=== PATIENT | female | born 1980 | race Caucasian/White ===

== ENCOUNTER 2016-12-20 08:08 | Emergency (ER) | payer OTHER ==
[~2016-12-20] VITALS: Ht 170.2 cm; Wt 116.0 kg
[~2016-12-20 08:08] MED LIST: ALBU18HF IH; ALPR0.5T PO; BECL8.7A INH; FLUO20CA38 PO; GABA600T PO; HYDR-3498 PO; IPRA4AER IH; LEVO88TA PO; ONDA4TAB35 PO; PANT40VI7 IV; PRAM28.33 PR; SUCR1TAB27 PO
[2016-12-20 08:10] VITALS: Ht 170.2 cm; Wt 116.0 kg
[2016-12-20] MEDS ORDERED: SOD CHLORIDE 0.9% 1,000 ML IV STA (08:24)
[2016-12-20] MEDS ORDERED: morphine 4 MG/ML VIAL IV STA ×2 (08:24→10:29)
[2016-12-20] MEDS ORDERED: DIPHENHYDRAMINE 50 MG INJ IV ONE ×2 (08:30→11:00)
[2016-12-20] MEDS ORDERED: LORA1TAB PO (08:54)
[2016-12-20] MEDS ORDERED: PANT40TA3 PO (08:55)
[2016-12-20] MEDS ORDERED: OMEP40CA6 PO (08:55)
[2016-12-20] MEDS ORDERED: GABA-526 PO ×4 (08:57→08:58)
[2016-12-20 09:00] LABS: ADD SCAN DIFF NO
[2016-12-20 09:15] LABS: BASOPHILS % 0.6 % (0.0-2.0); EOSINOPHILS # 0.3 10^3/ul (0.0-0.5); EOSINOPHILS % 3.5 % (0.0-7.0); HEMATOCRIT 41.6 % (37.0-47.0); HEMOGLOBIN 14.2 g/dl (12.0-16.0); LYMPHOCYTES # 2.7 10^3/ul (0.8-2.9); LYMPHOCYTES % 38.4 % (15.0-51.0); MEAN CORPUSCULAR HEMOGLOBIN 30.7 pg (29.0-33.0); MEAN CORPUSCULAR HGB CONC 34.1 g/dl (32.0-37.0); MEAN PLATELET VOLUME 9.2 fl (7.4-10.4); MONOCYTE # 0.6 10^3/ul (0.3-0.9); MONOCYTES % 7.8 % (0.0-11.0); NEUTROPHIL # 3.5 10^3/ul (1.6-7.5); NEUTROPHILS % 49.3 % (39.0-77.0); PLATELET COUNT 284 10^3/UL (140-415); RED BLOOD COUNT 4.62 10^6/ul (4.20-5.40); RED CELL DISTRIBUTION WIDTH 12.3 % (11.5-14.5); WHITE BLOOD COUNT 7.1 10^3/ul (4.8-10.8)
[2016-12-20 09:19] LABS: ALBUMIN 4.6 g/dl (3.3-4.9)
[2016-12-20 09:20] LABS: POTASSIUM 4.1 mmol/L (3.5-5.1)
[2016-12-20 09:22] LABS: ALBUMIN/GLOBULIN RATIO 1.04; BILIRUBIN,INDIRECT 0.3 mg/dl (0-1.1); BILIRUBIN,TOTAL 0.3 mg/dl (0.2-1.3); CREATININE 0.74 mg/dl (0.44-1.00)
[2016-12-20 09:23] LABS: CALCIUM 9.7 mg/dl (8.4-10.2)
--- NOTE | 2016-12-20 10:18 | RADRPT ---
PROCEDURE: CT Abdomen and Pelvis without contrast. CLINICAL INDICATION: Left flank pain. TECHNIQUE: CT scan of the abdomen and pelvis without contrast was performed on a multidetector hig h-resolution CT scanner. The patient was scanned without intravenous contrast. Coronal and sagittal reformatted images were obtained from the axial source images. Images were reviewed on a high-resol [employer] PACS workstation. The total exam CTDI equals 16.98 mGy and the total exam DLP equals 1100.79 m Gy-cm. One or the following dose reduction techniques were used: -Automated exposure control. -Adjustment of the mA and/or KV according to patient's size. -Use of iterative reconstruction technique. COMPARISON: CT abdomen and pelvis from 02/15/2016 FINDINGS: Lung Bases: Unremarkable. GI:. Unremarkable. Liver: Unremarkable. Gallbladder: Gallbladder is surgically absent. The common bile duct measures 10 mm. Pancreas: Unremarkable. Spleen: Unremarkablel Adrenals: Unremarkable. Kidneys: There is no evidence of nephrolithiasis, ureteral lithiasis or obstructive uropathy. Bladder: Unremarkable. Pelvic Organs: Unremarkable. Skeleton: Normal for age. Other: N/A IMPRESSION: 1. No evidence of nephrolithiasis, ureteral lithiasis or obstructive uropathy. 2. Previous cholecystectomy with mildly prominent common bile duct at 10 mm of uncertain significan ce. 3. Scattered colonic diverticulosis without evidence of acute diverticulitis. 4. No other significant intra-abdominal or pelvic process identified. RPTAT: [facility] Physician Roberto Date Time Electronically viewed and signed by Physician Roberto on 12/20/2016 10:18 WES/
[2016-12-20 10:48] VITALS: BP 137/80; PULSE 79; RESP 20; TEMP 99.3
[2016-12-20 10:55] LABS: ADD UMIC YES; URINE BILIRUBIN (Dip) NEGATIVE (NEGATIVE); URINE BLOOD (Dip) NEGATIVE (NEGATIVE); URINE COLOR LT. YELLOW (YELLOW); URINE GLUCOSE (Dip) NEGATIVE (NEGATIVE); URINE KETONES (Dip) NEGATIVE (NEGATIVE); URINE LEUKOCYTE ESTERASE (Dip) NEGATIVE (NEGATIVE); URINE NITRITE (Dip) POSITIVE (NEGATIVE); URINE TOTAL PROTEIN (Dip) NEGATIVE (NEGATIVE); URINE UROBILINOGEN (Dip) 0.2 E.U./dL (0.1-1.0)
[2016-12-20] MEDS ORDERED: CIPROFLOXACIN 500 MG TAB PO ONE (11:00)
[2016-12-20 11:02] LABS: BACTERIA,URINE MANY; URINE RBCS NONE SEEN /HPF (0)
--- NOTE | 2016-12-20 11:05 | ERD ---
ER Documentation Chief Complaint Date/Time DATE: 12/20/16 TIME: 11:01 Chief Complaint LT PELVIC PAIN TO FLANK X1 WK, SYNCOPE THIS AM W/ TRAUMA LT HEAD/SHOULDER HPI This is a 36-year-old female presents to the emergency room for evaluation of left-sided flank pain for the past week. The patient states that she was weak this morning and she did faint. She denies any head trauma, and states that she came to the ER for evaluation. She is denying any headache, blurred vision , dizziness, nausea or vomiting at this time. She describes her pain as an achy pain localized in the left flank with mild radiation to the groin sometimes worse with urination. Patient is denying any vaginal discharge or bleeding ROS All systems reviewed and are negative except as per history of present illness. Medications Home Meds Reported Medications Gabapentin* (Gabapentin*) 600 Mg Tablet, 600 MG PO QHS, #60 TAB 12/20/16 Gabapentin* (Gabapentin*) 600 Mg Tablet, 600 MG PO 6PM, #180 TAB 12/20/16 Gabapentin* (Gabapentin*) 600 Mg Tablet, 600 MG PO NOON, #90 TAB 12/20/16 Gabapentin* (Gabapentin*) 600 Mg Tablet, 1200 MG PO QAM, #60 TAB 12/20/16 Pantoprazole* (Protonix*) 40 Mg Tablet.dr, 40 MG PO BID, TAB 12/20/16 Omeprazole* (Omeprazole*) 40 Mg Capsule.dr, 40 MG PO BID, #30 CAP 12/20/16 Lorazepam* (Lorazepam*) 1 Mg Tablet, 1 MG PO Q4 Y for ANXIETY, #60 TAB 12/20/16 Fluoxetine Hcl* (Prozac*) 20 Mg Capsule, 20 MG PO BID, CAP 01/12/15 Levothyroxine Sodium* (Synthroid*) 88 Mcg Tablet, 88 MCG PO DAILY, TAB 08/16/14 Beclomethasone Dip* (Qvar 40*) 7.3 Gm Inha, 1 PUFF INH BID Y for SHORTNESS OF BREATH, INH 08/16/14 Discontinued Reported Medications Gabapentin* (Neurontin*) 600 Mg Tablet, 600 MG PO TID, TAB 08/16/14 Discontinued Scripts Pramoxine Hcl* (Anusol*) 28.3 Gm Oint...g., 1 APPLIC DC BID for HEMORROID PAIN/ ITCHING, #1 TUB Prov:ARIEL POE 02/26/16 Ondansetron Hcl* (Zofran* ODT) 4 mg -ODT Tab.disper, 4 MG PO Q4H Y for NAUSEA AND OR VOMITING, #30 TAB Prov:ARIEL POE 02/26/16 Hydrocodone Bit-Acetaminophen* ([place]*) 5-325 Mg Tab, 1 TAB PO Q4H Y for PAIN, # 30 TAB Prov:ARIEL POE 02/26/16 Pantoprazole* (Protonix* IV) 40 Mg Soln, 40 MG IV BID@06,18 for 30 Days Prov:ARIEL POE 02/26/16 Sucralfate (Carafate) 1 Gm Tab, 1 GM PO AC MEALS AND BEDTIME for 30 Days, TAB Prov:ARIEL POE 02/26/16 Alprazolam* (Xanax*) 0.5 Mg Tab, 0.5 MG PO Q8H Y for ANXIETY, #30 TAB Prov:QUEENIE HOLLINGSWORTH 01/16/15 Albuterol Sulfate* (Ventolin HFA*) 18 Gm Hfa.aer.ad, 2 PUFF IH Q4H Y for WHEEZING AND RESP DISTRESS, #30 EA Prov:QUEENIE HOLLINGSWORTH 01/16/15 Albuterol/Ipratropium* (Combivent Respimat*) 20-100 Mcg/Inh - 4 Gm Aer.w.adap, 1 PUFF IH QID, #30 INH Prov:QUEENIE HOLLINGSWORTH 01/16/15 Allergies Allergies: Coded Allergies: prochlorperazine edisylate (Verified Allergy, Severe, HIVES, 12/20/16) prochlorperazine maleate (Verified Allergy, Severe, HIVES, 12/20/16) ceftriaxone (Verified Allergy, Intermediate, RASHES, 12/20/16) doxycycline (Verified Allergy, Mild, itchiness, 12/20/16) metoclopramide (Verified Allergy, Mild, 12/20/16) naproxen (Verified Allergy, Unknown, ITCHING, 12/20/16) Uncoded Allergies: erythromycin (Adverse Reaction, Mild, c/o "scratchy throat, hives, itchy vagina, 02/18/16) erythromycin lactobionate PMhx/Soc History of Surgery: Yes (cholecystectomy, R oophorectomy, endometrisis, ovarian cya) Anesthesia Reaction: No Hx Neurological Disorder: No Hx Respiratory Disorders: Yes (asthma) Hx Cardiac Disorders: No Hx Psychiatric Problems: Yes (anxiety, Bipolar) Hx Miscellaneous Medical Probl: Yes (IBS, CROHNS) Hx Alcohol Use: No Hx Substance Use: No Hx Tobacco Use: No Smoking Status: Never smoker Physical Exam Vitals Vital Signs Date Time Temp Pulse Resp B/P Pulse Ox O2 Delivery O2 Flow Rate FiO2 12/20/16 08:10 99.3 114 20 146/88 97 Physical Exam INITIAL VITAL SIGNS: Reviewed by me GENERAL: The patient is well developed and appropriate for usual state of health in no apparent distress HEENT: Pupils equal, round, and reactive to light. EOMI. There is no scleral icterus. NECK: C-spine is soft and supple, there is no meningismus. There is no cervical lymphadenopathy. LUNGS: Clear to auscultation bilaterally. There are no rales, wheezes or rhonchi. HEART: Regular rate and rhythm, no murmurs, clicks, rubs or gallops. ABDOMEN: Left-sided CVAT, otherwise soft, non-tender, non-distended. There are bowel sounds in all four quadrants. No rebound or guarding. EXTREMITIES: There is no peripheral cyanosis or edema. No focal swelling or erythema. NEUROLOGICAL: The patient moves all four extremities with 5/5 strength. Cranial nerves II - XII are intact. Normal gait. Alert and oriented SKIN: There is no apparent rash or petechiae. HEME/LYMPHATIC: There is no evidence of excessive bruising or lymphedema. PSYCHIATRIC: The patient does not appear anxious or depressed. Result Diagram: 12/20/1682912/20/1630 Results 24 hrs Laboratory Tests Test 12/20/16 08:30 12/20/16 09:58 Alanine Aminotransferase (ALT/SGPT) 38IU/L Albumin 4.6g/dl Albumin/Globulin Ratio 1.04 Alkaline Phosphatase 73IU/L Anion Gap 21 Aspartate Amino Transf (AST/SGOT) 28IU/L Basophils # 0.010^3/ul Basophils % 0.6% Blood Urea Nitrogen 21mg/dl Calcium Level 9.7mg/dl Carbon Dioxide Level 23mmol/L Chloride Level 104mmol/L Creatinine 0.74mg/dl Direct Bilirubin 0.00mg/dl Eosinophils # 0.310^3/ul Eosinophils % 3.5% Globulin 4.40g/dl Glucose Level 93mg/dl Hematocrit 41.6% Hemoglobin 14.2g/dl Indirect Bilirubin 0.3mg/dl Lipase 60U/L Lymphocytes # 2.710^3/ul Lymphocytes % 38.4% Mean Corpuscular Hemoglobin 30.7pg Mean Corpuscular Hemoglobin Concent 34.1g/dl Mean Corpuscular Volume 90.0fl Mean Platelet Volume 9.2fl Monocytes # 0.610^3/ul Monocytes % 7.8% Neutrophils # 3.510^3/ul Neutrophils % 49.3% Nucleated Red Blood Cells # 0.010^3/ul Nucleated Red Blood Cells % 0.0/100WBC Platelet Count 32537^3/UL Potassium Level 4.1mmol/L Red Blood Count 4.6210^6/ul Red Cell Distribution Width 12.3% Sodium Level 144mmol/L Total Bilirubin 0.3mg/dl Total Protein 9.0g/dl White Blood Count 7.110^3/ul Urine Bilirubin NEGATIVE Urine Clarity CLEAR Urine Color LT. YELLOW Urine Glucose NEGATIVE% Urine Hemoglobin NEGATIVE Urine Ketones NEGATIVE Urine Leukocyte Esterase NEGATIVE Urine Microscopic RBC Pending Urine Microscopic WBC Pending Urine Nitrite POSITIVE Urine Specific [place] 1.020 Urine Total Protein NEGATIVE Urine Urobilinogen 0.2 E.U./dL Urine pH 6.5 Current Medications Medications (Trade) Dose Ordered Sig/Agnieszka Route PRN Reason Start Time Stop Time Status Last Admin Dose Admin Sodium Chloride (NS) 1,000 ml @ 1,000 mls/hr Q1H STAT IV 12/20/16 08:24 12/20/16 09:23 DC 12/20/16 08:42 Morphine Sulfate (morphine) 4 mg ONCE STAT IV 12/20/16 08:24 12/20/16 08:26 DC 12/20/16 08:42 Diphenhydramine HCl (Benadryl) 25 mg ONCE ONCE IV 12/20/16 08:30 12/20/16 08:31 DC 12/20/16 08:42 Morphine Sulfate (morphine) 4 mg ONCE STAT IV 12/20/16 10:29 12/20/16 10:30 DC 12/20/16 10:36 Diphenhydramine HCl (Benadryl) 25 mg ONCE ONCE IV 12/20/16 11:00 12/20/16 11:01 12/20/16 10:36 Ciprofloxacin (Cipro) 500 mg ONCE ONCE PO 12/20/16 11:00 12/20/16 11:01 Procedures/[facility] CT abdomen pelvis: 1. No evidence of nephrolithiasis, ureteral lithiasis or obstructive uropathy. 2. Previous cholecystectomy with mildly prominent common bile duct at 10 mm of uncertain significance. 3. Scattered colonic diverticulosis without evidence of acute diverticulitis. 4. No other significant intra-abdominal or pelvic process identified. This 36-year-old female presents to the emergency room for evaluation of left- sided flank pain and abdominal pain. She also stated that she did pass out this morning. When I evaluated her the patient had no complaints of a headache , she is alert and oriented to person place and time, no focal neurological deficits. Answering question appropriately. I do not feel the need for any imaging of the brain as this patient is at her baseline mental status with no visible trauma. This patient did have mild left-sided CVAT on my exam. CT of the abdomen pelvis was obtained which does not reveal any acute processes. Lab work and urine was also obtained this patient does have a nitrite positive urinary tract infection. This patient's pain is controlled with morphine in the emergency room, she was given p.o. ciprofloxacin. This patient also had mild prerenal azotemia was given 1 L of IV fluids. She is tolerating p.o. fluids. She will be discharged home at this time with a prescription for ciprofloxacin. Differential diagnoses entertained was broad with potential high acuity. Patient has been evaluated for appendicitis, cholecystitis, and other high risk medical and surgical causes of abdominal pain. Ultimately the patient's evaluation is nondiagnostic. Based on the patient's lack of risk factors, as well as the patient's clinical, laboratory, and imaging data, the patient appears to be low risk for these high risk causes of abdominal pain. Departure Diagnosis: Primary Impression: Acute cystitis Additional Impressions: Abdominal pain Prerenal azotemia Condition: Stable ЕКАТЕРИНАDAVID ONEILFRANSISCA CROWLEY Dec 20, 2016 11:05
[2016-12-20] MEDS ORDERED: HYDR-906 PO (11:06)
[2016-12-20] MEDS ORDERED: CIPR500T4 PO (11:06)
== END 2016-12-20 11:30 | disposition home or self-care (01) ==
LOC: E/R 08:08
DX: N30.00 Acute cystitis without hematuria (principal); R39.2 Extrarenal uremia; J45.909 Unspecified asthma, uncomplicated
CPT/HCPCS: 36415; 74176; 80053; 81001; 83690; 85025; 96374; 96375; 96376; J1200; J2270; J7030; Z7502; Z7610; 81003

== ENCOUNTER 2017-03-25 04:23 | Inpatient (IN) | payer OTHER ==
[~2017-03-25] VITALS: Ht 167.6 cm; Wt 122.2 kg
[~2017-03-25 04:23] MED LIST changes: -ALBU18HF IH; -ALPR0.5T PO; +CIPR500T4 PO; +GABA-526 PO; -GABA600T PO; -HYDR-3498 PO; +HYDR-906 PO; -IPRA4AER IH; +LORA1TAB PO; +OMEP40CA6 PO; -ONDA4TAB35 PO; +PANT40TA3 PO; -PANT40VI7 IV; -PRAM28.33 PR; -SUCR1TAB27 PO
[2017-03-25] MEDS ORDERED: morphine 4 MG/ML VIAL IV STA ×2 (04:45→08:27)
[2017-03-25] MEDS ORDERED: ONDANSETRON 4 MG INJ IV STA ×2 (04:45→08:27)
[2017-03-25] MEDS ORDERED: SOD CHLORIDE 0.9% 1,000 ML IV STA (04:45)
[2017-03-25] MEDS ORDERED: HYDROmorphONE 1 MG/ML SYG IV STA (05:02)
--- NOTE | 2017-03-25 05:07 | ERA ---
ER Documentation Chief Complaint Date/Time DATE: 03/25/17 TIME: 05:05 Chief Complaint LLQ abd pain, NV, diarrhea HPI This is a 37-year-old female comes in once of abdominal pain in the left lower quadrant with fever and diarrhea for the past 2-3 days. Patient has history of diverticulitis. Patient said pain is moderate in intensity. 4-5 episodes of diarrhea per day that were nonbloody. No other current complaints. ROS All systems reviewed and are negative except as per history of present illness. Medications Home Meds Active Scripts Hydrocodone/Acetaminophen ([place] 5-325 Tablet) 1 Each Tablet, 1 TAB PO Q6H Y for PAIN, #10 TAB Prov:TIMMY SAWANT DO 12/20/16 Ciprofloxacin Hcl* (Ciprofloxacin Hcl*) 500 Mg Tablet, 500 MG PO BID for 7 Days , TAB Prov:TIMMY SAWANT DO 12/20/16 Reported Medications Gabapentin* (Gabapentin*) 600 Mg Tablet, 600 MG PO QHS, #60 TAB 12/20/16 Gabapentin* (Gabapentin*) 600 Mg Tablet, 600 MG PO 6PM, #180 TAB 12/20/16 Gabapentin* (Gabapentin*) 600 Mg Tablet, 600 MG PO NOON, #90 TAB 12/20/16 Gabapentin* (Gabapentin*) 600 Mg Tablet, 1200 MG PO QAM, #60 TAB 12/20/16 Pantoprazole* (Protonix*) 40 Mg Tablet.dr, 40 MG PO BID, TAB 12/20/16 Omeprazole* (Omeprazole*) 40 Mg Capsule.dr, 40 MG PO BID, #30 CAP 12/20/16 Lorazepam* (Lorazepam*) 1 Mg Tablet, 1 MG PO Q4 Y for ANXIETY, #60 TAB 12/20/16 Fluoxetine Hcl* (Prozac*) 20 Mg Capsule, 20 MG PO BID, CAP 01/12/15 Levothyroxine Sodium* (Synthroid*) 88 Mcg Tablet, 88 MCG PO DAILY, TAB 08/16/14 Beclomethasone Dip* (Qvar 40*) 7.3 Gm Inha, 1 PUFF INH BID Y for SHORTNESS OF BREATH, INH 08/16/14 Allergies Allergies: Coded Allergies: prochlorperazine edisylate (Verified Allergy, Severe, HIVES, 12/20/16) prochlorperazine maleate (Verified Allergy, Severe, HIVES, 12/20/16) ceftriaxone (Verified Allergy, Intermediate, RASHES, 12/20/16) doxycycline (Verified Allergy, Mild, itchiness, 12/20/16) metoclopramide (Verified Allergy, Mild, 12/20/16) naproxen (Verified Allergy, Unknown, ITCHING, 12/20/16) Uncoded Allergies: erythromycin (Adverse Reaction, Mild, c/o "scratchy throat, hives, itchy vagina, 02/18/16) erythromycin lactobionate PMhx/Soc History of Surgery: Yes (cholecystectomy, R oophorectomy, endometrisis, ovarian cya) Anesthesia Reaction: No Hx Neurological Disorder: No Hx Respiratory Disorders: Yes (asthma) Hx Cardiac Disorders: No Hx Psychiatric Problems: Yes (anxiety, Bipolar) Hx Miscellaneous Medical Probl: Yes (IBS, CROHNS, Diverticulitis) Hx Alcohol Use: No Hx Substance Use: No Hx Tobacco Use: No Smoking Status: Never smoker Physical Exam Vitals Vital Signs Date Time Temp Pulse Resp B/P Pulse Ox O2 Delivery O2 Flow Rate FiO2 03/25/17 04:31 98.8 94 18 162/77 96 Physical Exam Const: [] Head: Atraumatic Eyes: Normal Conjunctiva ENT: Normal External Ears, Nose and Mouth. Neck: Full range of motion..~ No meningismus. Resp: Clear to auscultation bilaterally Cardio: Regular rate and rhythm, no murmurs Abd: Soft, non tender, non distended. Normal bowel sounds Skin: No petechiae or rashes Back: No midline or flank tenderness Ext: No cyanosis, or edema Neur: Awake and alert Psych: Normal Mood and Affect Results 24 hrs Current Medications Medications (Trade) Dose Ordered Sig/Agnieszka Route PRN Reason Start Time Stop Time Status Last Admin Dose Admin Sodium Chloride (NS) 1,000 ml @ 1,000 mls/hr Q1H STAT IV 03/25/17 04:45 03/25/17 05:44 Morphine Sulfate (morphine) 4 mg ONCE STAT IV 03/25/17 04:45 03/25/17 04:47 DC Ondansetron HCl (Zofran Inj) 4 mg ONCE STAT IV 03/25/17 04:45 03/25/17 04:47 DC Hydromorphone HCl (Dilaudid) 1 mg ONCE STAT IV 03/25/17 05:02 03/25/17 05:03 DC Diphenhydramine HCl (Benadryl) 50 mg ONCE ONCE IV 03/25/17 05:30 03/25/17 05:31 Procedures/MDM Medical decision-makin-year-old female with intractable abdominal pain. History of diverticulitis. Patient will be admitted to on-call physician for Dr. Riggins, who is admitted previously Departure Diagnosis: Primary Impression: Abdominal pain Qualified Code: R10.32 - Left lower quadrant pain Condition: Serious APRIL ROACH Mar 25, 2017 05:06
[2017-03-25] MEDS ORDERED: DIPHENHYDRAMINE 50 MG INJ IV ONE ×2 (05:30→08:30)
[2017-03-25 05:51] LABS: ADD SCAN DIFF NO
[2017-03-25 05:53] LABS: BASOPHILS % 0.7 % (0.0-2.0); EOSINOPHILS # 0.2 10^3/ul (0.0-0.5); EOSINOPHILS % 3.7 % (0.0-7.0); HEMATOCRIT 34.9 % (37.0-47.0); HEMOGLOBIN 12.1 g/dl (12.0-16.0); LYMPHOCYTES # 1.6 10^3/ul (0.8-2.9); LYMPHOCYTES % 35.6 % (15.0-51.0); MEAN CORPUSCULAR HEMOGLOBIN 31.8 pg (29.0-33.0); MEAN CORPUSCULAR HGB CONC 34.7 g/dl (32.0-37.0); MEAN CORPUSCULAR VOLUME 91.6 fl (82.0-101.0); MEAN PLATELET VOLUME 9.3 fl (7.4-10.4); MONOCYTE # 0.5 10^3/ul (0.3-0.9); MONOCYTES % 10.8 % (0.0-11.0); NEUTROPHIL # 2.2 10^3/ul (1.6-7.5); NEUTROPHILS % 48.8 % (39.0-77.0); PLATELET COUNT 247 10^3/UL (140-415); RED BLOOD COUNT 3.81 10^6/ul (4.20-5.40); RED CELL DISTRIBUTION WIDTH 12.3 % (11.5-14.5); WHITE BLOOD COUNT 4.6 10^3/ul (4.8-10.8)
[2017-03-25 05:54] LABS: ADD UMIC NO; URINE BILIRUBIN (Dip) NEGATIVE (NEGATIVE); URINE BLOOD (Dip) NEGATIVE (NEGATIVE); URINE COLOR LT. YELLOW (YELLOW); URINE GLUCOSE (Dip) NEGATIVE (NEGATIVE); URINE KETONES (Dip) NEGATIVE (NEGATIVE); URINE LEUKOCYTE ESTERASE (Dip) NEGATIVE (NEGATIVE); URINE NITRITE (Dip) NEGATIVE (NEGATIVE); URINE TOTAL PROTEIN (Dip) NEGATIVE (NEGATIVE); URINE UROBILINOGEN (Dip) 0.2 E.U./dL (0.1-1.0)
[2017-03-25 06:15] LABS: INR 0.9; PARTIAL THROMBOPLASTIN TIME 27.3 Sec (25.0-35.0); PROTIME 12.1 Sec (12.2-14.2); PT RATIO 0.9
[2017-03-25 06:21] LABS: ALBUMIN 4.8 g/dl (3.3-4.9); ALBUMIN/GLOBULIN RATIO 1.6; BILIRUBIN,INDIRECT 0.1 mg/dl (0-1.1); BILIRUBIN,TOTAL 0.1 mg/dl (0.2-1.3); CALCIUM 9.3 mg/dl (8.4-10.2); CREATININE 0.62 mg/dl (0.44-1.00); POTASSIUM 3.7 mmol/L (3.5-5.1); TOTAL PROTEIN 7.8 g/dl (6.1-8.1)
[2017-03-25] MEDS ORDERED: HYDROmorphONE 1 MG/ML SYG IV PRN (07:00)
[2017-03-25] MEDS: DEXTROSE 5%-0.45% NACL 1,000 ML IV SCH ×2 (09:01→22:20)
--- NOTE | 2017-03-25 10:07 | QN ---
Documentation Comment Observation Note: Time: 4 hours Family Hx: Negative for diabetes Evaluation: Multiple exams showed improving symptoms and no evidence of clinical decompensation. VONNIE VALLADARES MD Mar 25, 2017 10:07
[2017-03-25] MEDS: morphine 2 MG INJ IV PRN ×4 (11:38→22:06)
--- NOTE | 2017-03-25 13:15 | HP ---
DATE OF ADMISSION: 03/25/2017 CHIEF COMPLAINT: Left lower quadrant abdominal pain, nausea, vomiting, diarrhea. HISTORY OF PRESENT ILLNESS: The patient is a 37-year-old female with past medical history of irrita ble bowel syndrome, uterine fibroids, asthma, hypothyroidism, fibromyalgia, and anxiety. The patien t has a history of mild distal esophagitis and gastritis per EGD as done by ____ in February 2016. T he patient developed left lower quadrant pain, fever, and diarrhea for the past couple of days. The patient stated that she presented to another facility, where patient underwent ectopic ultrasound, which revealed uterine fibroids and complex cystic lesions of the left ovary. The patient also had a history of diverticulitis. The patient has a history of scattered colonic diverticula, per CT of abdomen and pelvis 3 months ago. The patient denies any shortness of breath, denies any chest pain. The patient complains of bilateral lower extremity edema and bilateral lower extremity pain. The patient was given IV fluids, Zofran and Dilaudid. The patient will be admitted for further evaluati on and management. PAST MEDICAL HISTORY: Per HPI. PAST SURGICAL HISTORY: Status post right oophorectomy, status post cholecystectomy. FAMILY HISTORY: Noncontributory. SOCIAL HISTORY: Patient denies any tobacco use, denies any alcohol use, denies any illicit drug use . ALLERGIES: THE PATIENT IS ALLERGIC TO: 1. CEFTRIAXONE. 2. DOXYCYCLINE. 3. ERYTHROMYCIN. 4. REGLAN. 5. NAPROXEN. 6. PROCHLORPERAZINE MALEATE. 7. METOCLOPRAMIDE. HOME MEDICATIONS: Include: 1. Gabapentin. 2. Protonix. 3. Omeprazole. 4. Ativan. 5. Prozac. 6. Synthroid. 7. Qvar. 8. [place]. 9. Ciprofloxacin. REVIEW OF SYSTEMS: A 12-point review of systems is negative unless mentioned in the HPI. PHYSICAL ASSESSMENT: GENERAL: Well-developed, obese female. Currently is awake, alert. VITAL SIGNS: Temperature 98.8, pulse is 94, blood pressure 162/77, respiratory rate 18, oxygen satu ration 96% on room air. HEENT: Head is atraumatic, normocephalic. Pupils equal, round, reactive to light and accommodation . Oral mucosa is pink and moist. NECK: Supple. No cervical lymphadenopathy, no thyromegaly. RESPIRATORY: Lungs clear bilaterally. There are no rhonchi, wheezes, rales noted. CARDIOVASCULAR: Normal S1, S2. No murmurs, gallops, or clicks, rubs noted. GASTROINTESTINAL: Abdomen is protuberant, soft, nondistended. Patient has left lower quadrant tend erness. Bowel sounds present. No rebound tenderness. EXTREMITIES: Mild edema 1+, pulses equal bilaterally 2+. SKIN: There is no rash, petechiae noted. NEUROLOGIC: Patient is awake, alert and oriented x4. No focal deficits noted. Motor strength 5/5 in all extremities. LABORATORY DATA: On admission, CBC: White blood cells 4.6, hemoglobin 12.1, hematocrit 34.9, plate lets 247. Chemistry: Sodium 140, potassium 3.7, chloride 104, carbon dioxide 25, anion gap 15, BUN 12, creatinine 0.62, glucose 119, calcium 9.3, AST 37, ALT 61, alkaline phosphatase is 59. Lipase is 44. Urinalysis was unremarkable. PT is 12.1, INR 0.9, aPTT is 27. ASSESSMENT AND PLAN: 1. Left lower quadrant abdominal pain. Can obtain repeat a CT of the abdomen and pelvis. Again, a sk . ____ to see patient in gastroenterology consultation. We will obtain stool for Clostridium d ifficile, ova and parasites due to diarrhea. Continue IV fluids and morphine p.r.n. for pain and Zo nakul p.r.n. for nausea. 2. Complex cystic lesion of the left ovary. We will call laborist director information security to evaluate the patient in gynecologic consultation. 3. Asthma, by history. Continue patient on breathing treatment. 4. Anxiety and bipolar disorder. Continue Prozac. 5. Hypothyroidism. We will check TSH. Continue Synthroid. 6. The patient with history of diverticulitis. We will continue patient on broad spectrum antibiot ic. 7. Will obtain ultrasound of bilateral lower extremities to rule out deep venous thrombosis. Further recommendations based on clinical course. Plan of care discussed with Dr. Messina. Dictated By: ARIEL POE CHIEF STRATEGY OFFICER for CRISTOFER MESSINA MD SR/NTS Conf#: [id number] DID#: [id number]
[2017-03-25] MEDS: PIPER-TAZO 3.375 GM IV (PMX) 100 ML IVPB SCH ×2 (13:21→22:06)
[2017-03-25] MEDS: DIPHENHYDRAMINE 50 MG INJ IV PRN ×2 (15:57→22:02)
[2017-03-25] MEDS: ONDANSETRON 4 MG INJ IV PRN ×2 (15:57→22:01)
[2017-03-25 18:03] VITALS: TEMP 98.8
[2017-03-25 19:35] VITALS: Ht 167.6 cm; Wt 122.2 kg
--- NOTE | 2017-03-25 20:03 | RADRPT ---
PROCEDURE: Ultrasound pelvis CLINICAL INDICATION: Abdominal Pain TECHNIQUE: Multiple canela scale and color Doppler images of the pelvis were obtained transabdominal ly and transvaginally. Images were reviewed PACS workstation COMPARISON: 02/18/2016 FINDINGS: The uterus is identified, measuring 8.3 x 4.5 x 6.6 cm. There are 2 uterine fibroids, measuring up t o 5.0 cm and 3.5 cm in size. The endometrial canal appears within normal limits, measuring 7 mm in thickness. The right ovary is not seen. The left ovary measures 4.1 x 2.2 x 2.3 centimeters. There are 2 left ovarian cysts, measuring up to 2.2 cm. The left ovary is unremarkable in echotexture, with maintain ed vascular flow. There is no evidence of free fluid. There is no abnormal adnexal mass. IMPRESSION: 1. Uterine fibroids, measuring 5.0 cm and 3.5 cm in size. 2. Two left ovarian cysts, measuring up to 2.2 cm. Status post right oophorectomy. 3. No adnexal mass or free fluid. RPTAT: DD .David Madrigal MD, Date Time Electronically viewed and signed by .David Madrigal MD, on 03/25/2017 20:02 .T/
[2017-03-25] MEDS ORDERED: OXYC-209 PO (20:15)
[2017-03-25 21:46] VITALS: BP 134/68; RESP 20
[2017-03-25] MEDS ORDERED: LORAZEPAM 1 MG TAB PO PRN (23:30)
[2017-03-26] MEDS: morphine 2 MG INJ IV PRN (01:30)
[2017-03-26] MEDS ORDERED: morphine 2 MG INJ IV ONE ×2 (02:30→22:00)
[2017-03-26] MEDS: DIPHENHYDRAMINE 50 MG INJ IV PRN ×5 (04:08→21:58)
[2017-03-26] MEDS: ONDANSETRON 4 MG INJ IV PRN ×5 (04:08→21:58)
[2017-03-26] MEDS: morphine 4 MG/ML VIAL IV PRN ×5 (04:09→20:27)
[2017-03-26] MEDS: DEXTROSE 5%-0.45% NACL 1,000 ML IV SCH ×2 (04:15→11:40)
[2017-03-26] MEDS: PIPER-TAZO 3.375 GM IV (PMX) 100 ML IVPB SCH ×3 (06:38→21:57)
[2017-03-26] MEDS: PANTOPRAZOLE (EC) 40 MG TAB PO SCH ×2 (06:38→17:49)
[2017-03-26 07:56] VITALS: BP 116/58; RESP 20
[2017-03-26] MEDS: FLUOXETINE 20 MG CAP PO SCH ×2 (08:05→20:28)
[2017-03-26] MEDS: LEVOTHYROXINE 88 MCG TAB PO SCH (08:05)
[2017-03-26] MEDS: GABAPENTIN 300 MG CAP PO SCH ×4 (08:05→22:01)
[2017-03-26] MEDS ORDERED: NON-FORMULARY/PATIENT OWN MED (Omeprazole* 40 MG) PO SCH (09:00)
[2017-03-26] MEDS: OXYCODONE/ACETAMINOPHEN (10/325) TAB PO PRN ×2 (09:31→17:51)
[2017-03-26] MEDS: MOMETASONE 0.24 GM INHALER INH SCH ×2 (09:33→20:28)
--- NOTE | 2017-03-26 19:18 | PN ---
Date/Time of Note Date/Time of Note DATE: 03/26/17 TIME: 19:13 Assessment/Plan VTE Prophylaxis VTE Prophylaxis Intervention: SCD's Lines/Catheters IV Catheter Type (from Nrsg): Peripheral IV Assessment/Plan Chief Complaint/Hosp Course ASSESSMENT AND PLAN: 1. Left lower quadrant abdominal pain. Dr. Barnes is asked to see patient in gastroenterology consultation. Follow-up stool for Clostridium difficile. Continue IV fluids and morphine p.r.n. for pain and Zofran p.r.n. for nausea. 2. Complex cystic lesion of the left ovary. Dr. Walters gynecology is following, pending pelvic ultrasound. 3. Asthma, by history. Continue patient on breathing treatment. 4. Anxiety and bipolar disorder. Continue Prozac. 5. Hypothyroidism. Continue Synthroid. 6. The patient with history of diverticulitis. Continue patient on broad spectrum antibiotic. Further recommendations based on clinical course. Plan of care discussed with Dr. Messina. Problems: Exam/Review of Systems Vital Signs Vitals Vital Signs Date Time Temp Pulse Resp B/P Pulse Ox O2 Delivery O2 Flow Rate FiO2 03/26/17 07:56 98.3 79 20 116/58 95 03/25/17 18:03 Room Air Intake and Output 03/25/17 03/25/17 03/26/17 15:00 23:00 07:00 Intake Total 2135 ml Balance 2135 ml Exam Constitutional: alert, oriented Neck: supple Cardiovascular: nl pulses Gastrointestinal: other (Left lower quadrant tenderness), soft Musculoskeletal: nl gait and stance Extremities: normal pulses Neurological: RANCH SUPERVISOR II-XII intact Results Result Diagram: 03/25/17 0500 03/25/17 0500 Medications Medications Current Medications Dextrose/Sodium Chloride 1,000 ml @ 75 mls/hr [id number] IV Last administered on 03/26/17 04:15; Admin Dose 75 MLS/HR; Start 03/25/17 at 09:00 Piperacillin Sod/ Tazobactam Sod (Zosyn 3.375gm/ 100 ml (Pmx)) 100 ml @ 200 mls /hr Q8 IVPB Last administered on 03/26/17 13:52; Admin Dose 200 MLS/HR; Start 03/25/17 at 14:00 Fluoxetine HCl (Prozac) 20 mg BID PO Last administered on 03/26/17 08:05; Admin Dose 20 MG; Start 03/26/17 at 09:00 Gabapentin (Neurontin) 1,200 mg QAM PO Last administered on 03/26/17 08:05; Admin Dose 1,200 MG; Start 03/26/17 at 09:00 Gabapentin (Neurontin) 600 mg DAILY@18 PO Last administered on 03/26/17 17:49; Admin Dose 600 MG; Start 03/26/17 at 18:00 Gabapentin (Neurontin) 600 mg DAILY@12 PO ; Start 03/26/17 at 12:00 Gabapentin (Neurontin) 600 mg QHS PO ; Start 03/26/17 at 21:00 Levothyroxine Sodium (Synthroid) 88 mcg DAILY PO Last administered on 03/26/17 08:05; Admin Dose 88 MCG; Start 03/26/17 at 09:00 Lorazepam (Ativan) 1 mg Q4 PRN PO ANXIETY; Start 03/25/17 at 23:30 Pantoprazole (Protonix Tab) 40 mg BID@,18 PO Last administered on 03/26/17 17 :49; Admin Dose 40 MG; Start 03/26/17 at 06:00 Mometasone Furoate (Asmanex) 1 puff BID INH Last administered on 03/26/17 09:33 ; Admin Dose 1 PUFF; Start 03/26/17 at 09:00 Oxycodone/ Acetaminophen (Endocet (10/ 325)) 2 tab Q6 PRN PO PAIN Last administered on 03/26/17 17:51; Admin Dose 2 TAB; Start 03/26/17 at 08:00 Diphenhydramine HCl (Benadryl) 25 mg Q4H PRN IV NAUSEA Last administered on 03/26 17:49; Admin Dose 25 MG; Start 03/26/17 at 09:30 Morphine Sulfate (morphine) 4 mg Q4H PRN IV PAIN Last administered on 03/26/17 16:13; Admin Dose 4 MG; Start 03/26/17 at 09:30 Ondansetron HCl (Zofran Inj) 4 mg Q4H PRN IV NAUSEA AND/OR VOMITING Last administered on 03/26/17 17:49; Admin Dose 4 MG; Start 03/26/17 at 10:00 ARIEL POE 7, 2017 19:18
[2017-03-26 21:29] VITALS: BP 131/66; RESP 20
[2017-03-26] MEDS ORDERED: LOPERAMIDE 2 MG CAP PO PRN (22:00)
[2017-03-27] MEDS: OXYCODONE/ACETAMINOPHEN (10/325) TAB PO PRN ×3 (00:06→23:34)
[2017-03-27] MEDS: DEXTROSE 5%-0.45% NACL 1,000 ML IV SCH ×3 (01:00→14:20)
[2017-03-27] MEDS: morphine 4 MG/ML VIAL IV PRN ×4 (01:01→13:53)
[2017-03-27] MEDS: ONDANSETRON 4 MG INJ IV PRN ×5 (02:27→20:14)
[2017-03-27] MEDS: DIPHENHYDRAMINE 50 MG INJ IV PRN ×5 (02:27→20:14)
[2017-03-27] MEDS ORDERED: morphine 4 MG/ML VIAL IV ONE (03:14)
[2017-03-27] MEDS: PIPER-TAZO 3.375 GM IV (PMX) 100 ML IVPB SCH ×3 (05:18→22:11)
[2017-03-27] MEDS: PANTOPRAZOLE (EC) 40 MG TAB PO SCH ×2 (05:18→17:50)
[2017-03-27 05:57] LABS: ADD SCAN DIFF NO
[2017-03-27 06:21] LABS: CALCIUM 8.6 mg/dl (8.4-10.2); CREATININE 0.63 mg/dl (0.44-1.00); POTASSIUM 3.9 mmol/L (3.5-5.1)
[2017-03-27 08:20] VITALS: BP 116/58; RESP 20
[2017-03-27] MEDS: LEVOTHYROXINE 88 MCG TAB PO SCH (08:49)
[2017-03-27] MEDS: GABAPENTIN 300 MG CAP PO SCH ×4 (08:50→20:16)
[2017-03-27] MEDS: FLUOXETINE 20 MG CAP PO SCH ×2 (08:50→20:16)
[2017-03-27] MEDS: MOMETASONE 0.24 GM INHALER INH SCH ×2 (08:59→20:16)
[2017-03-27 10:25] LABS: BASOPHILS % 0.9 % (0.0-2.0); EOSINOPHILS # 0.2 10^3/ul (0.0-0.5); EOSINOPHILS % 5.3 % (0.0-7.0); HEMATOCRIT 34.2 % (37.0-47.0); HEMOGLOBIN 11.8 g/dl (12.0-16.0); LYMPHOCYTES # 1.8 10^3/ul (0.8-2.9); LYMPHOCYTES % 42.1 % (15.0-51.0); MEAN CORPUSCULAR HEMOGLOBIN 31.9 pg (29.0-33.0); MEAN CORPUSCULAR HGB CONC 34.5 g/dl (32.0-37.0); MEAN CORPUSCULAR VOLUME 92.4 fl (82.0-101.0); MEAN PLATELET VOLUME 9.1 fl (7.4-10.4); MONOCYTE # 0.4 10^3/ul (0.3-0.9); MONOCYTES % 9.4 % (0.0-11.0); NEUTROPHIL # 1.8 10^3/ul (1.6-7.5); NEUTROPHILS % 41.8 % (39.0-77.0); PLATELET COUNT 237 10^3/UL (140-415); RED CELL DISTRIBUTION WIDTH 12.1 % (11.5-14.5); WHITE BLOOD COUNT 4.4 10^3/ul (4.8-10.8)
[2017-03-27] MEDS: morphine 10 MG INJ IV PRN ×2 (17:54→22:11)
[2017-03-27] MEDS ORDERED: PEG/ELECTROLYTES 4L BTL PO ONE (18:00)
--- NOTE | 2017-03-27 19:18 | PN ---
Date/Time of Note Date/Time of Note DATE: 03/27/17 TIME: 19:11 Assessment/Plan VTE Prophylaxis VTE Prophylaxis Intervention: SCD's Lines/Catheters IV Catheter Type (from Nrsg): Peripheral IV Assessment/Plan Assessment/Plan 1. Left lower quadrant abdominal pain. stool for Clostridium difficile negative. - per Dr. Barnes in gastroenterology consultation. 1. GI bleed- Angie - per GI - EGD/Colonoscopy tomorrow. - IV fluids - morphine p.r.n. for pain - Zofran p.r.n. for nausea. 2. Complex cystic lesion of the left ovary. - per Dr. Walters in gynecology - pelvic ultrasound showed Uterine fibroids, measuring 5.0 cm and 3.5 cm in size. Two left ovarian cysts, measuring up to 2.2 cm. Status post right oophorectomy.No adnexal mass or free fluid. 3. Asthma, by history. Continue patient on breathing treatment. 4. Anxiety and bipolar disorder. Continue Prozac. 5. Hypothyroidism. Continue Synthroid. 6. The patient with history of diverticulitis. Continue patient on broad spectrum antibiotic. Further recommendations based on clinical course. Plan of care discussed with Dr. Messina. Subjective 24 Hr Interval Summary Free Text/Dictation c/o Left lower quadrant abdominal pain. stool for Clostridium difficile negative. Dr. Barnes follows in gastroenterology consultation. Staff reported GI bleed- Angie, EGD/Colonoscopy tomorrow.per staff. Exam/Review of Systems Vital Signs Vitals Vital Signs Date Time Temp Pulse Resp B/P Pulse Ox O2 Delivery O2 Flow Rate FiO2 03/27/17 08:20 98.9 78 20 116/58 97 03/25/17 18:03 Room Air Intake and Output 03/26/17 03/26/17 03/27/17 15:00 23:00 07:00 Intake Total 100 ml 2790 ml 2290 ml Balance 100 ml 2790 ml 2290 ml Exam Constitutional: alert, oriented, well developed Respiratory: clear to auscultation, normal air movement Cardiovascular: nl pulses, regular rate and rhythm Gastrointestinal: soft Musculoskeletal: nl extremities to inspection Extremities: normal pulses Neurological: nl mental status, nl speech Results Result Diagram: 03/27/17 0450 03/27/17 0450 Results 24 hrs Laboratory Tests Test 03/27/17 04:50 White Blood Count 4.4 L Red Blood Count 3.70 L Hemoglobin 11.8 L Hematocrit 34.2 L Mean Corpuscular Volume 92.4 Mean Corpuscular Hemoglobin 31.9 Mean Corpuscular Hemoglobin Concent 34.5 Red Cell Distribution Width 12.1 Platelet Count 237 Mean Platelet Volume 9.1 Neutrophils % 41.8 Lymphocytes % 42.1 Monocytes % 9.4 Eosinophils % 5.3 Basophils % 0.9 Nucleated Red Blood Cells % 0.0 Neutrophils # 1.8 Lymphocytes # 1.8 Monocytes # 0.4 Eosinophils # 0.2 Basophils # 0.0 Nucleated Red Blood Cells # 0.0 Sodium Level 139 Potassium Level 3.9 Chloride Level 105 Carbon Dioxide Level 26 Anion Gap 12 Blood Urea Nitrogen 8 Creatinine 0.63 Glucose Level 84 Calcium Level 8.6 Medications Medications Current Medications Dextrose/Sodium Chloride 1,000 ml @ 75 mls/hr [id number] IV Last administered on 03/27/17 05:25; Admin Dose 75 MLS/HR; Start 03/25/17 at 09:00 Piperacillin Sod/ Tazobactam Sod (Zosyn 3.375gm/ 100 ml (Pmx)) 100 ml @ 200 mls /hr Q8 IVPB Last administered on 03/27/17 13:53; Admin Dose 200 MLS/HR; Start 03/25/17 at 14:00 Fluoxetine HCl (Prozac) 20 mg BID PO Last administered on 03/27/17 08:50; Admin Dose 20 MG; Start 03/26/17 at 09:00 Gabapentin (Neurontin) 1,200 mg QAM PO Last administered on 03/27/17 08:50; Admin Dose 1,200 MG; Start 03/26/17 at 09:00 Gabapentin (Neurontin) 600 mg DAILY@18 PO Last administered on 03/27/17 17:54; Admin Dose 600 MG; Start 03/26/17 at 18:00 Gabapentin (Neurontin) 600 mg DAILY@12 PO ; Start 03/26/17 at 12:00 Gabapentin (Neurontin) 600 mg QHS PO Last administered on 03/26/17 22:01; Admin Dose 600 MG; Start 03/26/17 at 21:00 Levothyroxine Sodium (Synthroid) 88 mcg DAILY PO Last administered on 03/27/17 08:49; Admin Dose 88 MCG; Start 03/26/17 at 09:00 Lorazepam (Ativan) 1 mg Q4 PRN PO ANXIETY; Start 03/25/17 at 23:30 Pantoprazole (Protonix Tab) 40 mg BID@,18 PO Last administered on 03/27/17 17 :50; Admin Dose 40 MG; Start 03/26/17 at 06:00 Mometasone Furoate (Asmanex) 1 puff BID INH Last administered on 03/27/17 08:59 ; Admin Dose 1 PUFF; Start 03/26/17 at 09:00 Oxycodone/ Acetaminophen (Endocet (10/ 325)) 2 tab Q6 PRN PO PAIN Last administered on 03/27/17 15:22; Admin Dose 2 TAB; Start 03/26/17 at 08:00 Diphenhydramine HCl (Benadryl) 25 mg Q4H PRN IV NAUSEA Last administered on 03/27 16:12; Admin Dose 25 MG; Start 03/26/17 at 09:30 Ondansetron HCl (Zofran Inj) 4 mg Q4H PRN IV NAUSEA AND/OR VOMITING Last administered on 03/27/17 16:12; Admin Dose 4 MG; Start 03/26/17 at 10:00 Loperamide HCl (Imodium Cap) 2 mg QID PRN PO DIARRHEA Last administered on 21:58; Admin Dose 2 MG; Start 03/26/17 at 22:00 Morphine Sulfate (morphine) 5 mg Q4H PRN IV PAIN Last administered on 03/27/17 17:54; Admin Dose 5 MG; Start 03/27/17 at 17:30 ISRAEL BOURGEOIS Mar 27, 2017 19:18
[2017-03-27] MEDS ORDERED: OXYCODONE/ACETAMINOPHEN (10/325) TAB PO ONE (20:20)
[2017-03-27 20:44] VITALS: BP 117/58; RESP 20
[2017-03-27 22:10] VITALS: BP 114/77; PULSE 108
[2017-03-28] VITALS (10 sets, daily range): BP systolic 121–141; BP diastolic 60–79; PULSE 80–97; RESP 16–28
[2017-03-28] MEDS: ONDANSETRON 4 MG INJ IV PRN ×5 (00:05→22:49)
[2017-03-28] MEDS: DIPHENHYDRAMINE 50 MG INJ IV PRN ×6 (00:05→22:49)
[2017-03-28] MEDS: DEXTROSE 5%-0.45% NACL 1,000 ML IV SCH ×2 (00:06→17:00)
[2017-03-28] MEDS: HYDROmorphONE 1 MG/ML SYG IV PRN ×3 (02:07→12:40)
[2017-03-28] MEDS: PANTOPRAZOLE (EC) 40 MG TAB PO SCH ×2 (06:00→16:58)
[2017-03-28] MEDS: PIPER-TAZO 3.375 GM IV (PMX) 100 ML IVPB SCH ×3 (06:28→21:13)
--- NOTE | 2017-03-28 07:29 | CONS ---
DATE OF ADMISSION: 03/25/2017 DATE OF CONSULTATION: TYPE OF CONSULTATION: Gastroenterology. Dear Dr. Messina: Thank you for asking me to see Mrs. Honeycutt in GI consultation. HISTORY OF PRESENT ILLNESS: The patient, as you know, is a 37-year-old white female who has been ex periencing bloody diarrhea for the past 3 days, having 2 to 3 bowel movements per day and the stool is liquid and mixed with blood. No nausea, no vomiting. No history of hematemesis. No history of prior gastrointestinal bleeding. No prior gastrointestinal problems. She takes multiple medications for different conditions, medications are as described below. REVIEW OF SYSTEM: Positive for migraine. PAST SURGICAL HISTORY: Includes hysterectomy, oophorectomy as well and cholecystectomy. MEDICATIONS PRIOR TO THE ADMISSION: Include: 1. Gabapentin. 2. Protonix. 3. Omeprazole. 4. Ativan. 5. Prozac. 6. Synthroid. 7. Qvar. 8. [place]. 9. Ciprofloxacin. SOCIAL HISTORY: The patient does not smoke or drink. She used to work in sales. FAMILY HISTORY: Father and grandfather had some colon cancer or colon polyps. PHYSICAL EXAMINATION: GENERAL: The patient is a 37-year-old white female who at this time she is alert, mildly obese. VITAL SIGNS: She is afebrile. CARDIOVASCULAR: Normal heart sounds. RESPIRATORY: Normal breath sounds. ABDOMEN: Showed unremarkable findings. LABORATORY WORKUP: Prothrombin time 12.1. WBC count is 4400, hemoglobin 11.8. INR is 0.9. IMAGING STUDIES: Pelvic ultrasound showing evidence of: 1. uterine fibroids. 2. Left ovarian cyst. CLINICAL IMPRESSION: Bloody diarrhea, rule out ischemic colitis, rule out infectious colitis. Doub t Clostridium difficile colitis. Doubt colorectal neoplasm, arteriovenous malformation, diverticulo sis. PLAN: Recommend colonoscopy. Recommend stool for ova and parasites and culture and C. difficile to amanuel. Once again, I would like to thank you for this consultation. Dictated By: ELY CAMPBELL/NTS Conf#: [id number] DID#: [id number] CC: CRISTOFER MESSINA MD;*EndCC*
[2017-03-28] MEDS: GABAPENTIN 300 MG CAP PO SCH ×4 (08:39→21:10)
[2017-03-28] MEDS: LEVOTHYROXINE 88 MCG TAB PO SCH (08:39)
[2017-03-28] MEDS: MOMETASONE 0.24 GM INHALER INH SCH ×4 (08:39→21:09)
[2017-03-28] MEDS: FLUOXETINE 20 MG CAP PO SCH ×2 (08:39→21:12)
[2017-03-28 10:08] LABS: ADD SCAN DIFF NO
[2017-03-28 10:15] LABS: BASOPHILS % 0.2 % (0.0-2.0); EOSINOPHILS # 0.3 10^3/ul (0.0-0.5); EOSINOPHILS % 5.3 % (0.0-7.0); HEMOGLOBIN 11.9 g/dl (12.0-16.0); LYMPHOCYTES # 1.9 10^3/ul (0.8-2.9); LYMPHOCYTES % 34.9 % (15.0-51.0); MEAN CORPUSCULAR HEMOGLOBIN 31.2 pg (29.0-33.0); MEAN CORPUSCULAR VOLUME 91.6 fl (82.0-101.0); MONOCYTE # 0.4 10^3/ul (0.3-0.9); MONOCYTES % 7.5 % (0.0-11.0); NEUTROPHIL # 2.7 10^3/ul (1.6-7.5); NEUTROPHILS % 51.7 % (39.0-77.0); PLATELET COUNT 245 10^3/UL (140-415); RED BLOOD COUNT 3.82 10^6/ul (4.20-5.40); RED CELL DISTRIBUTION WIDTH 12.3 % (11.5-14.5); WHITE BLOOD COUNT 5.3 10^3/ul (4.8-10.8)
[2017-03-28 10:49] LABS: CREATININE 0.66 mg/dl (0.44-1.00); POTASSIUM 3.6 mmol/L (3.5-5.1)
--- NOTE | 2017-03-28 12:15 | GILP ---
DATE OF PROCEDURE: PROCEDURE: Colonoscopy. PREOPERATIVE DIAGNOSIS: The patient presenting with history of bloody diarrhea, rule out inflammato ry bowel disease, colorectal neoplasm, diverticulosis. POSTOPERATIVE DIAGNOSIS: Mild degree of diverticulosis. The colon appeared normal. Minimal external hemorrhoids were noted. Biopsies were done to rule out microscopic colitis. DESCRIPTION OF PROCEDURE: After informed written consent was obtained, the patient was asked to lie on the left lateral side. Intravenous anesthesia was given which included 6 mg Versed and 100 mcg of fentanyl. When the patient became somnolent, the Olympus video colonoscope was introduced into t he rectum and scope was advanced all the way to the cecum. The entire colon showed normal mucosal p attern except for mild diverticulosis, no bleeding noted. Biopsies were done in a random fashion fr om the right side of the colon and also left side of the colon and no additional abnormalities detec shola. On the way out, minimal external hemorrhoids were noted and the procedure was terminated. PLAN: Recommend wait for the pathology report. Dictated By: ELY HERNÁNDEZ MD NC/NTS Conf#: [id number] DID#: [id number] CC: CRISTOFER DALEY MD; ELY HERNÁNDEZ MD;*EndCC*
[2017-03-28] MEDS ORDERED: MIDAZOLAM 1 MG/ML 2 ML INJ ONE ×3 (12:37)
[2017-03-28] MEDS ORDERED: FENTAnyl 50 MCG/ML VIAL ONE (12:37)
[2017-03-28] MEDS ORDERED: ONDANSETRON 4 MG INJ IV STA (12:50)
[2017-03-28] MEDS ORDERED: HYDROmorphONE 1 MG/ML SYG IV STA (13:57)
--- NOTE | 2017-03-28 15:17 | PN ---
Date/Time of Note Date/Time of Note DATE: 03/28/17 TIME: 15:10 Assessment/Plan VTE Prophylaxis VTE Prophylaxis Intervention: SCD's Lines/Catheters IV Catheter Type (from Nrsg): Peripheral IV Assessment/Plan Chief Complaint/Hosp Course Patient's complains of left lower quadrant pain, stated that Dilaudid makes her dizzy, DC Dilaudid, continue morphine as needed for pain. ASSESSMENT AND PLAN: 1. Left lower quadrant abdominal pain. Dr. Barnes is following in gastroenterology consultation. Stool for C. difficile is negative. Patient status post EGD and colonoscopy, continue to follow-up gastroenterology consult recommendations. Continue IV fluids and morphine p.r.n. for pain and Zofran p.r.n. for nausea. 2. Complex cystic lesion of the left ovary. Dr. Walters gynecology is following. 3. Asthma, by history. Continue patient on breathing treatment. 4. Anxiety and bipolar disorder. Continue Prozac. 5. Hypothyroidism. Continue Synthroid. 6. The patient with history of diverticulitis. Continue patient on broad spectrum antibiotic. Further recommendations based on clinical course. Plan of care discussed with Dr. Messina. Problems: Exam/Review of Systems Vital Signs Vitals Vital Signs Date Time Temp Pulse Resp B/P Pulse Ox O2 Delivery O2 Flow Rate FiO2 03/28/17 12:47 97.8 83 20 130/69 97 Room Air Intake and Output 03/27/17 03/27/17 03/28/17 15:00 23:00 07:00 Intake Total 100 ml 700 ml 5155 ml Balance 100 ml 700 ml 5155 ml Exam Constitutional: alert, oriented Head: normocephalic Neck: supple Cardiovascular: nl pulses Gastrointestinal: other (LLQ tenderness), soft Extremities: normal pulses Skin: nl turgor Results Result Diagram: 03/28/17 0918 03/28/17 0914 Results 24 hrs Laboratory Tests Test 03/28/17 09:14 03/28/17 09:18 Sodium Level 145 H Potassium Level 3.6 Chloride Level 107 Carbon Dioxide Level 26 Anion Gap 16 Blood Urea Nitrogen 7 Creatinine 0.66 Glucose Level 87 Calcium Level 9.0 White Blood Count 5.3 # Red Blood Count 3.82 L Hemoglobin 11.9 L Hematocrit 35.0 L Mean Corpuscular Volume 91.6 Mean Corpuscular Hemoglobin 31.2 Mean Corpuscular Hemoglobin Concent 34.0 Red Cell Distribution Width 12.3 Platelet Count 245 Mean Platelet Volume 9.0 Neutrophils % 51.7 Lymphocytes % 34.9 Monocytes % 7.5 Eosinophils % 5.3 Basophils % 0.2 Nucleated Red Blood Cells % 0.0 Neutrophils # 2.7 Lymphocytes # 1.9 Monocytes # 0.4 Eosinophils # 0.3 Basophils # 0.0 Nucleated Red Blood Cells # 0.0 Medications Medications Current Medications Dextrose/Sodium Chloride 1,000 ml @ 75 mls/hr [id number] IV Last administered on 03/28/17 00:06; Admin Dose 75 MLS/HR; Start 03/25/17 at 09:00 Piperacillin Sod/ Tazobactam Sod (Zosyn 3.375gm/ 100 ml (Pmx)) 100 ml @ 200 mls /hr Q8 IVPB Last administered on 03/28/17 14:21; Admin Dose 200 MLS/HR; Start 03/25/17 at 14:00 Fluoxetine HCl (Prozac) 20 mg BID PO Last administered on 03/27/17 20:16; Admin Dose 20 MG; Start 03/26/17 at 09:00 Gabapentin (Neurontin) 1,200 mg QAM PO Last administered on 03/27/17 08:50; Admin Dose 1,200 MG; Start 03/26/17 at 09:00 Gabapentin (Neurontin) 600 mg DAILY@18 PO Last administered on 03/27/17 17:54; Admin Dose 600 MG; Start 03/26/17 at 18:00 Gabapentin (Neurontin) 600 mg DAILY@12 PO ; Start 03/26/17 at 12:00 Gabapentin (Neurontin) 600 mg QHS PO Last administered on 03/27/17 20:16; Admin Dose 600 MG; Start 03/26/17 at 21:00 Levothyroxine Sodium (Synthroid) 88 mcg DAILY PO Last administered on 03/27/17 08:49; Admin Dose 88 MCG; Start 03/26/17 at 09:00 Lorazepam (Ativan) 1 mg Q4 PRN PO ANXIETY; Start 03/25/17 at 23:30 Pantoprazole (Protonix Tab) 40 mg BID@06,18 PO Last administered on 03/27/17 17 :50; Admin Dose 40 MG; Start 03/26/17 at 06:00 Mometasone Furoate (Asmanex) 1 puff BID INH Last administered on 03/28/17 10:27 ; Admin Dose 1 PUFF; Start 03/26/17 at 09:00 Oxycodone/ Acetaminophen (Endocet (10/ 325)) 2 tab Q6 PRN PO PAIN Last administered on 03/27/17 23:34; Admin Dose 2 TAB; Start 03/26/17 at 08:00 Diphenhydramine HCl (Benadryl) 25 mg Q4H PRN IV NAUSEA Last administered on 03/28 14:20; Admin Dose 25 MG; Start 03/26/17 at 09:30 Ondansetron HCl (Zofran Inj) 4 mg Q4H PRN IV NAUSEA AND/OR VOMITING Last administered on 03/28/17 10:20; Admin Dose 4 MG; Start 03/26/17 at 10:00 Loperamide HCl (Imodium Cap) 2 mg QID PRN PO DIARRHEA Last administered on 21:58; Admin Dose 2 MG; Start 03/26/17 at 22:00 Hydromorphone HCl (Dilaudid) 1 mg Q4H PRN IV PAIN Last administered on 12:40; Admin Dose 1 MG; Start 03/28/17 at 02:00 ARIEL POE Mar 28, 2017 15:17
[2017-03-28] MEDS: morphine 10 MG INJ IV PRN ×2 (16:53→21:12)
[2017-03-28] MEDS: OXYCODONE/ACETAMINOPHEN (10/325) TAB PO PRN (18:05)
[2017-03-28] MEDS ORDERED: ONDANSETRON 4 MG INJ IV ONE (21:00)
[2017-03-28] MEDS ORDERED: DIPHENHYDRAMINE 50 MG INJ IV ONE (21:00)
[2017-03-29] MEDS: OXYCODONE/ACETAMINOPHEN (10/325) TAB PO PRN ×4 (00:13→20:27)
[2017-03-29] MEDS: morphine 10 MG INJ IV PRN ×6 (01:25→23:28)
[2017-03-29] MEDS: DIPHENHYDRAMINE 50 MG INJ IV PRN ×6 (02:52→23:28)
[2017-03-29] MEDS: ONDANSETRON 4 MG INJ IV PRN ×6 (02:52→23:28)
[2017-03-29] MEDS: DEXTROSE 5%-0.45% NACL 1,000 ML IV SCH ×2 (02:57→23:27)
[2017-03-29] MEDS: PIPER-TAZO 3.375 GM IV (PMX) 100 ML IVPB SCH ×3 (05:28→23:27)
[2017-03-29] MEDS: PANTOPRAZOLE (EC) 40 MG TAB PO SCH ×2 (05:28→18:21)
[2017-03-29 06:11] LABS: ADD SCAN DIFF NO
[2017-03-29 06:26] LABS: BASOPHILS % 0.5 % (0.0-2.0); EOSINOPHILS # 0.3 10^3/ul (0.0-0.5); EOSINOPHILS % 6.4 % (0.0-7.0); HEMATOCRIT 31.8 % (37.0-47.0); HEMOGLOBIN 10.7 g/dl (12.0-16.0); LYMPHOCYTES # 1.8 10^3/ul (0.8-2.9); LYMPHOCYTES % 42.2 % (15.0-51.0); MEAN CORPUSCULAR HEMOGLOBIN 31.1 pg (29.0-33.0); MEAN CORPUSCULAR HGB CONC 33.6 g/dl (32.0-37.0); MEAN CORPUSCULAR VOLUME 92.4 fl (82.0-101.0); MEAN PLATELET VOLUME 8.9 fl (7.4-10.4); MONOCYTE # 0.3 10^3/ul (0.3-0.9); MONOCYTES % 8.1 % (0.0-11.0); NEUTROPHIL # 1.8 10^3/ul (1.6-7.5); NEUTROPHILS % 42.3 % (39.0-77.0); PLATELET COUNT 214 10^3/UL (140-415); RED BLOOD COUNT 3.44 10^6/ul (4.20-5.40); WHITE BLOOD COUNT 4.2 10^3/ul (4.8-10.8)
[2017-03-29 07:15] LABS: CALCIUM 8.7 mg/dl (8.4-10.2); CREATININE 0.69 mg/dl (0.44-1.00); POTASSIUM 3.3 mmol/L (3.5-5.1)
[2017-03-29 07:58] VITALS: BP 140/77; RESP 19
[2017-03-29] MEDS: MOMETASONE 0.24 GM INHALER INH SCH ×2 (09:42→20:28)
[2017-03-29] MEDS: GABAPENTIN 300 MG CAP PO SCH ×4 (09:42→20:27)
[2017-03-29] MEDS: FLUOXETINE 20 MG CAP PO SCH ×2 (09:42→20:27)
[2017-03-29] MEDS: LEVOTHYROXINE 88 MCG TAB PO SCH (09:42)
--- NOTE | 2017-03-29 12:54 | PN ---
Date/Time of Note Date/Time of Note DATE: 03/29/17 TIME: 12:53 Assessment/Plan VTE Prophylaxis VTE Prophylaxis Intervention: other Lines/Catheters IV Catheter Type (from Nrs): Peripheral IV Assessment/Plan Chief Complaint/Hosp Course 1. Left lower quadrant abdominal pain. Dr. Barnes is following in gastroenterology consultation. Stool for C. difficile is negative. Patient status post EGD and colonoscopy, continue to follow-up gastroenterology consult recommendations. Continue IV fluids and morphine p.r.n. for pain and Zofran p.r.n. for nausea. 2. Complex cystic lesion of the left ovary. Dr. Walters gynecology is following. 3. Asthma, by history. Continue patient on breathing treatment. 4. Anxiety and bipolar disorder. Continue Prozac. 5. Hypothyroidism. Continue Synthroid. 6. The patient with history of diverticulitis. Continue patient on broad spectrum antibiotic. Problems: Subjective 24 Hr Interval Summary Free Text/Dictation Patient has abdominal pain, worse with oral intake Exam/Review of Systems Vital Signs Vitals Vital Signs Date Time Temp Pulse Resp B/P Pulse Ox O2 Delivery O2 Flow Rate FiO2 03/29/17 07:58 98.4 76 19 140/77 96 03/28/17 12:47 Room Air Intake and Output 03/28/17 03/28/17 03/29/17 15:00 23:00 07:00 Intake Total 100 ml 1175 ml 2070 ml Balance 100 ml 1175 ml 2070 ml Exam Constitutional: well developed Head: atraumatic, normocephalic Neck: supple Respiratory: clear to auscultation Cardiovascular: regular rate and rhythm Gastrointestinal: soft, tender Extremities: normal pulses Results Result Diagram: 03/29/17 0551 03/29/17 0557 Results 24 hrs Laboratory Tests Test 03/29/17 05:51 03/29/17 05:57 White Blood Count 4.2 #L Red Blood Count 3.44 L Hemoglobin 10.7 L Hematocrit 31.8 L Mean Corpuscular Volume 92.4 Mean Corpuscular Hemoglobin 31.1 Mean Corpuscular Hemoglobin Concent 33.6 Red Cell Distribution Width 12.0 Platelet Count 214 Mean Platelet Volume 8.9 Neutrophils % 42.3 Lymphocytes % 42.2 Monocytes % 8.1 Eosinophils % 6.4 Basophils % 0.5 Nucleated Red Blood Cells % 0.0 Neutrophils # 1.8 Lymphocytes # 1.8 Monocytes # 0.3 Eosinophils # 0.3 Basophils # 0.0 Nucleated Red Blood Cells # 0.0 Sodium Level 145 H Potassium Level 3.3 L Chloride Level 109 Carbon Dioxide Level 26 Anion Gap 13 Blood Urea Nitrogen 8 Creatinine 0.69 Glucose Level 113 Calcium Level 8.7 Medications Medications Current Medications Dextrose/Sodium Chloride 1,000 ml @ 75 mls/hr [id number] IV Last administered on 03/29/17 02:57; Admin Dose 75 MLS/HR; Start 03/25/17 at 09:00 Piperacillin Sod/ Tazobactam Sod (Zosyn 3.375gm/ 100 ml (Pmx)) 100 ml @ 200 mls /hr Q8 IVPB Last administered on 03/29/17 05:28; Admin Dose 200 MLS/HR; Start 03/25/17 at 14:00 Fluoxetine HCl (Prozac) 20 mg BID PO Last administered on 03/29/17 09:42; Admin Dose 20 MG; Start 03/26/17 at 09:00 Gabapentin (Neurontin) 1,200 mg QAM PO Last administered on 03/29/17 09:42; Admin Dose 1,200 MG; Start 03/26/17 at 09:00 Gabapentin (Neurontin) 600 mg DAILY@18 PO Last administered on 03/28/17 16:58; Admin Dose 600 MG; Start 03/26/17 at 18:00 Gabapentin (Neurontin) 600 mg DAILY@12 PO Last administered on 03/29/17 12:22 ; Admin Dose 600 MG; Start 03/26/17 at 12:00 Gabapentin (Neurontin) 600 mg QHS PO Last administered on 03/28/17 21:10; Admin Dose 600 MG; Start 03/26/17 at 21:00 Levothyroxine Sodium (Synthroid) 88 mcg DAILY PO Last administered on 09:42; Admin Dose 88 MCG; Start 03/26/17 at 09:00 Lorazepam (Ativan) 1 mg Q4 PRN PO ANXIETY; Start 03/25/17 at 23:30 Pantoprazole (Protonix Tab) 40 mg BID@06,18 PO Last administered on 03/29/17 05:28; Admin Dose 40 MG; Start 03/26/17 at 06:00 Mometasone Furoate (Asmanex) 1 puff BID INH Last administered on 03/29/17 09: 42; Admin Dose 1 PUFF; Start 03/26/17 at 09:00 Oxycodone/ Acetaminophen (Endocet (10/ 325)) 2 tab Q6 PRN PO PAIN Last administered on 03/29/17 12:23; Admin Dose 2 TAB; Start 03/26/17 at 08:00 Diphenhydramine HCl (Benadryl) 25 mg Q4H PRN IV NAUSEA Last administered on 10:48; Admin Dose 25 MG; Start 03/26/17 at 09:30 Ondansetron HCl (Zofran Inj) 4 mg Q4H PRN IV NAUSEA AND/OR VOMITING Last administered on 03/29/17 10:48; Admin Dose 4 MG; Start 03/26/17 at 10:00 Loperamide HCl (Imodium Cap) 2 mg QID PRN PO DIARRHEA Last administered on 21:58; Admin Dose 2 MG; Start 03/26/17 at 22:00 Morphine Sulfate (morphine) 5 mg Q4H PRN IV PAIN LEVEL 6-10 Last administered on 03/29/17 09:43; Admin Dose 5 MG; Start 03/28/17 at 15:00 KARTIK CASTRO Mar 29, 2017 12:54
--- NOTE | 2017-03-29 16:58 | CONS ---
DATE OF ADMISSION: 03/25/2017 DATE OF CONSULTATION: CHIEF COMPLAINT: At this time, the patient is not having any rectal bleeding. She was admitted to the hospital with rectal bleeding. Colonoscopy showed diverticulosis and hemorrhoids. She currentl y does, however, complain of minimal abdominal pain. PHYSICAL EXAMINATION: No change from yesterday. LABORATORY WORKUP: WBC count 4200, hemoglobin 10.7. Chemistry: Potassium is 4.3. CLINICAL IMPRESSION: Rectal bleeding, stable, probably secondary to diverticulosis, may be hemorrho idal bleeding as well. PLAN: At this time, continue to monitor the patient closely. Dictated By: ELY CAMPBELL/VANCE Conf#: [id number] DID#: [id number] CC: ELY HERNÁNDEZ MD;*EndCC*
[2017-03-29 21:30] VITALS: BP 142/70; RESP 20
[2017-03-30] MEDS: OXYCODONE/ACETAMINOPHEN (10/325) TAB PO PRN ×3 (02:28→19:50)
[2017-03-30] MEDS: PROMETHAZINE 25 MG TAB PO PRN ×2 (03:57→08:08)
[2017-03-30] MEDS: DIPHENHYDRAMINE 50 MG INJ IV PRN ×5 (03:57→21:24)
[2017-03-30] MEDS: PIPER-TAZO 3.375 GM IV (PMX) 100 ML IVPB SCH ×3 (05:17→21:32)
[2017-03-30] MEDS: PANTOPRAZOLE (EC) 40 MG TAB PO SCH ×2 (05:17→17:23)
[2017-03-30] MEDS: morphine 10 MG INJ IV PRN ×5 (05:20→22:01)
[2017-03-30 07:54] VITALS: BP 142/76; RESP 20
[2017-03-30] MEDS: LEVOTHYROXINE 88 MCG TAB PO SCH (08:07)
[2017-03-30] MEDS: GABAPENTIN 300 MG CAP PO SCH ×4 (08:07→20:46)
[2017-03-30] MEDS: FLUOXETINE 20 MG CAP PO SCH ×2 (08:08→20:46)
[2017-03-30] MEDS: MOMETASONE 0.24 GM INHALER INH SCH ×2 (08:09→20:47)
[2017-03-30] MEDS: DEXTROSE 5%-0.45% NACL 1,000 ML IV SCH ×3 (09:00→22:20)
--- NOTE | 2017-03-30 12:03 | PN ---
Date/Time of Note Date/Time of Note DATE: 03/30/17 TIME: 12:02 Assessment/Plan VTE Prophylaxis VTE Prophylaxis Intervention: other Lines/Catheters IV Catheter Type (from Nrs): Peripheral IV Assessment/Plan Chief Complaint/Hosp Course 1. Left lower quadrant abdominal pain. Dr. Barnes is following in gastroenterology consultation. Stool for C. difficile is negative. Patient status post EGD and colonoscopy, continue to follow-up gastroenterology consult recommendations. Continue IV fluids and morphine p.r.n. for pain and Zofran p.r.n. for nausea. 2. Complex cystic lesion of the left ovary. Dr. Walters gynecology is following. 3. Asthma, by history. Continue patient on breathing treatment. 4. Anxiety and bipolar disorder. Continue Prozac. 5. Hypothyroidism. Continue Synthroid. 6. The patient with history of diverticulitis. Continue patient on broad spectrum antibiotic. Problems: Subjective 24 Hr Interval Summary Free Text/Dictation Patient continues to have abdominal pain, nausea and vomiting with oral intake Exam/Review of Systems Vital Signs Vitals Vital Signs Date Time Temp Pulse Resp B/P Pulse Ox O2 Delivery O2 Flow Rate FiO2 03/30/17 07:54 98.4 78 20 142/76 97 03/28/17 12:47 Room Air Intake and Output 03/29/17 03/29/17 03/30/17 15:00 23:00 07:00 Intake Total 1675 ml 1830 ml Balance 1675 ml 1830 ml Exam Constitutional: well developed Head: atraumatic, normocephalic Neck: supple Respiratory: clear to auscultation Cardiovascular: regular rate and rhythm Gastrointestinal: non-tender, soft Extremities: normal pulses Results Result Diagram: 03/29/17 0551 03/29/17 0557 Medications Medications Current Medications Dextrose/Sodium Chloride 1,000 ml @ 75 mls/hr [id number] IV Last administered on 03/29/17 23:27; Admin Dose 75 MLS/HR; Start 03/25/17 at 09:00 Piperacillin Sod/ Tazobactam Sod (Zosyn 3.375gm/ 100 ml (Pmx)) 100 ml @ 200 mls /hr Q8 IVPB Last administered on 03/30/17 05:17; Admin Dose 200 MLS/HR; Start 03/25/17 at 14:00 Fluoxetine HCl (Prozac) 20 mg BID PO Last administered on 03/30/17 08:08; Admin Dose 20 MG; Start 03/26/17 at 09:00 Gabapentin (Neurontin) 1,200 mg QAM PO Last administered on 03/30/17 08:07; Admin Dose 1,200 MG; Start 03/26/17 at 09:00 Gabapentin (Neurontin) 600 mg DAILY@18 PO Last administered on 03/29/17 18:21 ; Admin Dose 600 MG; Start 03/26/17 at 18:00 Gabapentin (Neurontin) 600 mg DAILY@12 PO Last administered on 03/29/17 12:22 ; Admin Dose 600 MG; Start 03/26/17 at 12:00 Gabapentin (Neurontin) 600 mg QHS PO Last administered on 03/29/17 20:27; Admin Dose 600 MG; Start 03/26/17 at 21:00 Levothyroxine Sodium (Synthroid) 88 mcg DAILY PO Last administered on 08:07; Admin Dose 88 MCG; Start 03/26/17 at 09:00 Lorazepam (Ativan) 1 mg Q4 PRN PO ANXIETY; Start 03/25/17 at 23:30 Pantoprazole (Protonix Tab) 40 mg BID@18 PO Last administered on 03/30/17 05:17; Admin Dose 40 MG; Start 03/26/17 at 06:00 Mometasone Furoate (Asmanex) 1 puff BID INH Last administered on 03/30/17 08: 09; Admin Dose 1 PUFF; Start 03/26/17 at 09:00 Oxycodone/ Acetaminophen (Endocet (10/ 325)) 2 tab Q6 PRN PO PAIN Last administered on 03/30/17 02:28; Admin Dose 2 TAB; Start 03/26/17 at 08:00 Diphenhydramine HCl (Benadryl) 25 mg Q4H PRN IV NAUSEA Last administered on 08:09; Admin Dose 25 MG; Start 03/26/17 at 09:30 Ondansetron HCl (Zofran Inj) 4 mg Q4H PRN IV NAUSEA AND/OR VOMITING Last administered on 03/29/17 23:28; Admin Dose 4 MG; Start 03/26/17 at 10:00 Loperamide HCl (Imodium Cap) 2 mg QID PRN PO DIARRHEA Last administered on 21:58; Admin Dose 2 MG; Start 03/26/17 at 22:00 Morphine Sulfate (morphine) 5 mg Q4H PRN IV PAIN LEVEL 6-10 Last administered on 03/30/17 09:43; Admin Dose 5 MG; Start 03/28/17 at 15:00 Promethazine HCl (Phenergan) 25 mg Q6H PRN PO nausea Last administered on 08:08; Admin Dose 25 MG; Start 03/30/17 at 01:30 KARTIK CASTRO Mar 30, 2017 12:03
[2017-03-30] MEDS: ONDANSETRON 4 MG INJ IV PRN ×3 (12:19→21:24)
--- NOTE | 2017-03-30 13:53 | CONS ---
Date/Time of Note Date/Time of Note DATE: 03/30/17 TIME: 13:50 Assessment/Plan Assessment/Plan Chief Complaint/Hosp Course cont current rx Problems: Consultation Date/Type/Reason Admit Date/Time Mar 25, 2017 at 05:05 Initial Consult Date 24 HR Interval Summary Free Text/Dictation admitted with gi bleeding no more3 gi bleeding Exam/Review of Systems Vital Signs Vitals Vital Signs Date Time Temp Pulse Resp B/P Pulse Ox O2 Delivery O2 Flow Rate FiO2 03/30/17 07:54 98.4 78 20 142/76 97 03/28/17 12:47 Room Air Intake and Output 03/29/17 03/29/17 03/30/17 15:00 23:00 07:00 Intake Total 1675 ml 1830 ml Balance 1675 ml 1830 ml Exam oe appears well abd neg colonoscopy showed diverticulosis and hemorrhoids hb stable Results Result Diagram: 03/29/17 0551 03/29/17 0557 Medications Medications Current Medications Dextrose/Sodium Chloride 1,000 ml @ 75 mls/hr [id number] IV Last administered on 03/29/17 23:27; Admin Dose 75 MLS/HR; Start 03/25/17 at 09:00 Piperacillin Sod/ Tazobactam Sod (Zosyn 3.375gm/ 100 ml (Pmx)) 100 ml @ 200 mls /hr Q8 IVPB Last administered on 03/30/17 05:17; Admin Dose 200 MLS/HR; Start 03/25/17 at 14:00 Fluoxetine HCl (Prozac) 20 mg BID PO Last administered on 03/30/17 08:08; Admin Dose 20 MG; Start 03/26/17 at 09:00 Gabapentin (Neurontin) 1,200 mg QAM PO Last administered on 03/30/17 08:07; Admin Dose 1,200 MG; Start 03/26/17 at 09:00 Gabapentin (Neurontin) 600 mg DAILY@18 PO Last administered on 03/29/17 18:21 ; Admin Dose 600 MG; Start 03/26/17 at 18:00 Gabapentin (Neurontin) 600 mg DAILY@12 PO Last administered on 03/30/17 12:40 ; Admin Dose 600 MG; Start 03/26/17 at 12:00 Gabapentin (Neurontin) 600 mg QHS PO Last administered on 03/29/17 20:27; Admin Dose 600 MG; Start 03/26/17 at 21:00 Levothyroxine Sodium (Synthroid) 88 mcg DAILY PO Last administered on 08:07; Admin Dose 88 MCG; Start 03/26/17 at 09:00 Lorazepam (Ativan) 1 mg Q4 PRN PO ANXIETY; Start 03/25/17 at 23:30 Pantoprazole (Protonix Tab) 40 mg BID@,18 PO Last administered on 03/30/17 05:17; Admin Dose 40 MG; Start 03/26/17 at 06:00 Mometasone Furoate (Asmanex) 1 puff BID INH Last administered on 03/30/17 08: 09; Admin Dose 1 PUFF; Start 03/26/17 at 09:00 Oxycodone/ Acetaminophen (Endocet (10/ 325)) 2 tab Q6 PRN PO PAIN Last administered on 03/30/17 12:41; Admin Dose 2 TAB; Start 03/26/17 at 08:00 Diphenhydramine HCl (Benadryl) 25 mg Q4H PRN IV NAUSEA Last administered on 12:19; Admin Dose 25 MG; Start 03/26/17 at 09:30 Ondansetron HCl (Zofran Inj) 4 mg Q4H PRN IV NAUSEA AND/OR VOMITING Last administered on 03/30/17 12:19; Admin Dose 4 MG; Start 03/26/17 at 10:00 Loperamide HCl (Imodium Cap) 2 mg QID PRN PO DIARRHEA Last administered on 21:58; Admin Dose 2 MG; Start 03/26/17 at 22:00 Morphine Sulfate (morphine) 5 mg Q4H PRN IV PAIN LEVEL 6-10 Last administered on 03/30/17 09:43; Admin Dose 5 MG; Start 03/28/17 at 15:00 Promethazine HCl (Phenergan) 25 mg Q6H PRN PO nausea Last administered on 08:08; Admin Dose 25 MG; Start 03/30/17 at 01:30 ELY HERNÁNDEZ MD Mar 30, 2017 13:53
[2017-03-30 20:59] VITALS: BP 156/62; RESP 20
[2017-03-31] MEDS ORDERED: morphine 2 MG INJ IV ONE (00:30)
[2017-03-31] MEDS: ONDANSETRON 4 MG INJ IV PRN ×6 (01:34→23:04)
[2017-03-31] MEDS: DIPHENHYDRAMINE 50 MG INJ IV PRN ×6 (01:35→23:04)
[2017-03-31] MEDS: morphine 10 MG INJ IV PRN ×6 (02:02→23:04)
[2017-03-31] MEDS: OXYCODONE/ACETAMINOPHEN (10/325) TAB PO PRN ×3 (04:12→22:13)
[2017-03-31] MEDS: PANTOPRAZOLE (EC) 40 MG TAB PO SCH ×2 (05:28→18:01)
[2017-03-31] MEDS: PIPER-TAZO 3.375 GM IV (PMX) 100 ML IVPB SCH ×3 (05:31→22:54)
[2017-03-31 07:40] VITALS: BP 139/97; RESP 16
[2017-03-31] MEDS: DEXTROSE 5%-0.45% NACL 1,000 ML IV SCH (08:38)
[2017-03-31] MEDS: LEVOTHYROXINE 88 MCG TAB PO SCH (08:39)
[2017-03-31] MEDS: FLUOXETINE 20 MG CAP PO SCH ×2 (08:39→20:41)
[2017-03-31] MEDS: GABAPENTIN 300 MG CAP PO SCH ×4 (08:40→20:41)
[2017-03-31] MEDS: MOMETASONE 0.24 GM INHALER INH SCH ×2 (08:40→20:41)
--- NOTE | 2017-03-31 17:38 | PN ---
Date/Time of Note Date/Time of Note DATE: 03/31/17 TIME: 17:32 Assessment/Plan VTE Prophylaxis VTE Prophylaxis Intervention: SCD's Lines/Catheters IV [facility] Saline Lock Assessment/Plan Chief Complaint/Hosp Course Patient's complains of diarrhea which is expected after the prep for colonoscopy , patient had emesis last night, complaints of generalized abdominal pain, remains hemodynamically stable. ASSESSMENT AND PLAN: 1. Left lower quadrant abdominal pain. Status post colonoscopy. Dr. Barnes is following in gastroenterology consultation. Stool for C. difficile is negative. Continue IV fluids and morphine p.r.n. for pain and Zofran p.r.n. for nausea. 2. Uterine fibroids in [address] Walters gynecology is following. 3. Asthma, by history. Continue patient on breathing treatment. 4. Anxiety and bipolar disorder. Continue Prozac. 5. Hypothyroidism. Continue Synthroid. 6. Diverticulosis. Further recommendations based on clinical course. Plan of care discussed with Dr. Messina. Problems: Exam/Review of Systems Vital Signs Vitals Vital Signs Date Time Temp Pulse Resp B/P Pulse Ox O2 Delivery O2 Flow Rate FiO2 03/31/17 07:40 98.5 81 16 139/97 96 03/28/17 12:47 Room Air Intake and Output 03/30/17 03/30/17 03/31/17 15:00 23:00 07:00 Intake Total 725 ml 2165 ml 1545 ml Balance 725 ml 2165 ml 1545 ml Exam Constitutional: alert, oriented Head: normocephalic Neck: supple Cardiovascular: nl pulses Gastrointestinal: soft, BS + Extremities: normal pulses Skin: nl turgor Results Result Diagram: 03/29/17 0551 03/29/17 0557 Medications Medications Current Medications Dextrose/Sodium Chloride 1,000 ml @ 75 mls/hr [id number] IV Last administered on 03/31/17 08:38; Admin Dose 75 MLS/HR; Start 03/25/17 at 09:00 Piperacillin Sod/ Tazobactam Sod (Zosyn 3.375gm/ 100 ml (Pmx)) 100 ml @ 200 mls /hr Q8 IVPB Last administered on 03/31/17 14:44; Admin Dose 200 MLS/HR; Start 03/25/17 at 14:00 Fluoxetine HCl (Prozac) 20 mg BID PO Last administered on 03/31/17 08:39; Admin Dose 20 MG; Start 03/26/17 at 09:00 Gabapentin (Neurontin) 1,200 mg QAM PO Last administered on 03/31/17 08:40; Admin Dose 1,200 MG; Start 03/26/17 at 09:00 Gabapentin (Neurontin) 600 mg DAILY@18 PO Last administered on 03/30/17 17:23 ; Admin Dose 600 MG; Start 03/26/17 at 18:00 Gabapentin (Neurontin) 600 mg DAILY@12 PO Last administered on 03/31/17 12:05 ; Admin Dose 600 MG; Start 03/26/17 at 12:00 Gabapentin (Neurontin) 600 mg QHS PO Last administered on 03/30/17 20:46; Admin Dose 600 MG; Start 03/26/17 at 21:00 Levothyroxine Sodium (Synthroid) 88 mcg DAILY PO Last administered on 08:39; Admin Dose 88 MCG; Start 03/26/17 at 09:00 Lorazepam (Ativan) 1 mg Q4 PRN PO ANXIETY; Start 03/25/17 at 23:30 Pantoprazole (Protonix Tab) 40 mg BID@18 PO Last administered on 03/31/17 05:28; Admin Dose 40 MG; Start 03/26/17 at 06:00 Mometasone Furoate (Asmanex) 1 puff BID INH Last administered on 03/31/17 08: 40; Admin Dose 1 PUFF; Start 03/26/17 at 09:00 Oxycodone/ Acetaminophen (Endocet (10/ 325)) 2 tab Q6 PRN PO PAIN Last administered on 03/31/17 12:06; Admin Dose 2 TAB; Start 03/26/17 at 08:00 Diphenhydramine HCl (Benadryl) 25 mg Q4H PRN IV NAUSEA Last administered on 14:45; Admin Dose 25 MG; Start 03/26/17 at 09:30 Ondansetron HCl (Zofran Inj) 4 mg Q4H PRN IV NAUSEA AND/OR VOMITING Last administered on 03/31/17 14:46; Admin Dose 4 MG; Start 03/26/17 at 10:00 Loperamide HCl (Imodium Cap) 2 mg QID PRN PO DIARRHEA Last administered on 21:58; Admin Dose 2 MG; Start 03/26/17 at 22:00 Morphine Sulfate (morphine) 5 mg Q4H PRN IV PAIN LEVEL 6-10 Last administered on 03/31/17 14:48; Admin Dose 5 MG; Start 03/28/17 at 15:00 Promethazine HCl (Phenergan) 25 mg Q6H PRN PO nausea Last administered on 08:08; Admin Dose 25 MG; Start 03/30/17 at 01:30 ARIEL POE Mar 31, 2017 17:38
[2017-03-31 21:24] VITALS: BP 155/78; RESP 18
[2017-04-01] MEDS: DEXTROSE 5%-0.45% NACL 1,000 ML IV SCH ×2 (02:59→14:20)
[2017-04-01] MEDS: morphine 10 MG INJ IV PRN ×4 (03:07→15:10)
[2017-04-01] MEDS: DIPHENHYDRAMINE 50 MG INJ IV PRN ×6 (03:08→23:04)
[2017-04-01] MEDS: ONDANSETRON 4 MG INJ IV PRN ×6 (03:08→23:04)
[2017-04-01] MEDS: OXYCODONE/ACETAMINOPHEN (10/325) TAB PO PRN ×3 (04:30→21:34)
[2017-04-01 05:19] LABS: ADD SCAN DIFF NO
[2017-04-01 05:22] LABS: BASOPHILS % 0.7 % (0.0-2.0); EOSINOPHILS # 0.3 10^3/ul (0.0-0.5); EOSINOPHILS % 4.9 % (0.0-7.0); HEMATOCRIT 32.8 % (37.0-47.0); HEMOGLOBIN 11.2 g/dl (12.0-16.0); LYMPHOCYTES # 1.9 10^3/ul (0.8-2.9); LYMPHOCYTES % 34.8 % (15.0-51.0); MEAN CORPUSCULAR HEMOGLOBIN 31.4 pg (29.0-33.0); MEAN CORPUSCULAR HGB CONC 34.1 g/dl (32.0-37.0); MEAN CORPUSCULAR VOLUME 91.9 fl (82.0-101.0); MEAN PLATELET VOLUME 9.1 fl (7.4-10.4); MONOCYTE # 0.4 10^3/ul (0.3-0.9); MONOCYTES % 6.5 % (0.0-11.0); NEUTROPHIL # 2.9 10^3/ul (1.6-7.5); NEUTROPHILS % 52.7 % (39.0-77.0); PLATELET COUNT 266 10^3/UL (140-415); RED BLOOD COUNT 3.57 10^6/ul (4.20-5.40); RED CELL DISTRIBUTION WIDTH 11.9 % (11.5-14.5); WHITE BLOOD COUNT 5.5 10^3/ul (4.8-10.8)
[2017-04-01 05:53] LABS: CALCIUM 9.3 mg/dl (8.4-10.2); CREATININE 0.63 mg/dl (0.44-1.00); POTASSIUM 3.8 mmol/L (3.5-5.1)
[2017-04-01] MEDS: PANTOPRAZOLE (EC) 40 MG TAB PO SCH ×2 (06:09→17:48)
[2017-04-01] MEDS: PIPER-TAZO 3.375 GM IV (PMX) 100 ML IVPB SCH ×2 (06:20→13:09)
[2017-04-01 07:40] VITALS: BP 132/76; RESP 18
[2017-04-01] MEDS: FLUOXETINE 20 MG CAP PO SCH ×2 (08:26→21:24)
[2017-04-01] MEDS: GABAPENTIN 300 MG CAP PO SCH ×4 (08:26→21:24)
[2017-04-01] MEDS: LEVOTHYROXINE 88 MCG TAB PO SCH (08:27)
[2017-04-01] MEDS: MOMETASONE 0.24 GM INHALER INH SCH ×2 (08:27→21:24)
[2017-04-01] MEDS ORDERED: PANT40TA3 PO (17:46)
[2017-04-01] MEDS ORDERED: OXYC-209 PO (17:46)
[2017-04-01] MEDS ORDERED: ONDA-43 PO (17:46)
--- NOTE | 2017-04-01 18:02 | PN ---
Date/Time of Note Date/Time of Note DATE: 04/01/17 TIME: 18:00 Assessment/Plan VTE Prophylaxis VTE Prophylaxis Intervention: SCD's Lines/Catheters [facility] Saline Lock Assessment/Plan Chief Complaint/Hosp Course Patient tolerates patient ate 50% of lunch and dinner no emesis, no diarrhea, d/ c home. ASSESSMENT AND PLAN: 1. Left lower quadrant abdominal pain. Status post colonoscopy. Dr. Barnes is following in gastroenterology consultation. Stool for C. difficile is negative. Continue IV fluids and morphine p.r.n. for pain and Zofran p.r.n. for nausea. 2. Uterine fibroids in [address] Walters gynecology is following. 3. Asthma, by history. Continue patient on breathing treatment. 4. Anxiety and bipolar disorder. Continue Prozac. 5. Hypothyroidism. Continue Synthroid. Further recommendations based on clinical course. Plan of care discussed with Dr. Messina. Problems: Exam/Review of Systems Vital Signs Vitals Vital Signs Date Time Temp Pulse Resp B/P Pulse Ox O2 Delivery O2 Flow Rate FiO2 04/01/17 07:40 98.0 91 18 132/76 96 03/28/17 12:47 Room Air Intake and Output 03/31/17 03/31/17 04/01/17 15:00 23:00 07:00 Intake Total 1025 ml 1500 ml Balance 1025 ml 1500 ml Exam Constitutional: alert, oriented Head: normocephalic Neck: supple Cardiovascular: nl pulses Gastrointestinal: soft, BS + Extremities: normal pulses Skin: nl turgor Results Result Diagram: 04/01/17 0445 04/01/17 0445 Results 24 hrs Laboratory Tests Test 04/01/17 04:45 White Blood Count 5.5 # Red Blood Count 3.57 L Hemoglobin 11.2 L Hematocrit 32.8 L Mean Corpuscular Volume 91.9 Mean Corpuscular Hemoglobin 31.4 Mean Corpuscular Hemoglobin Concent 34.1 Red Cell Distribution Width 11.9 Platelet Count 266 # Mean Platelet Volume 9.1 Neutrophils % 52.7 Lymphocytes % 34.8 Monocytes % 6.5 Eosinophils % 4.9 Basophils % 0.7 Nucleated Red Blood Cells % 0.0 Neutrophils # 2.9 Lymphocytes # 1.9 Monocytes # 0.4 Eosinophils # 0.3 Basophils # 0.0 Nucleated Red Blood Cells # 0.0 Sodium Level 144 Potassium Level 3.8 Chloride Level 109 Carbon Dioxide Level 24 Anion Gap 15 Blood Urea Nitrogen 10 Creatinine 0.63 Glucose Level 106 Calcium Level 9.3 Medications Medications Current Medications Dextrose/Sodium Chloride (D5-1/2ns) 1,000 ml @ 75 mls/hr [id number] IV Last administered on 04/01/17 02:59; Admin Dose 75 MLS/HR; Start 03/25/17 at 09:00 Fluoxetine HCl (Prozac) 20 mg BID PO Last administered on 04/01/17 08:26; Admin Dose 20 MG; Start 03/26/17 at 09:00 Gabapentin (Neurontin) 1,200 mg QAM PO Last administered on 04/01/17 08:26; Admin Dose 1,200 MG; Start 03/26/17 at 09:00 Gabapentin (Neurontin) 600 mg DAILY@18 PO Last administered on 04/01/17 17:48 ; Admin Dose 600 MG; Start 03/26/17 at 18:00 Gabapentin (Neurontin) 600 mg DAILY@12 PO Last administered on 04/01/17 12:23 ; Admin Dose 600 MG; Start 03/26/17 at 12:00 Gabapentin (Neurontin) 600 mg QHS PO Last administered on 03/31/17 20:41; Admin Dose 600 MG; Start 03/26/17 at 21:00 Levothyroxine Sodium (Synthroid) 88 mcg DAILY PO Last administered on 08:27; Admin Dose 88 MCG; Start 03/26/17 at 09:00 Lorazepam (Ativan) 1 mg Q4 PRN PO ANXIETY; Start 03/25/17 at 23:30 Pantoprazole (Protonix Tab) 40 mg BID@06,18 PO Last administered on 04/01/17 17:48; Admin Dose 40 MG; Start 03/26/17 at 06:00 Mometasone Furoate (Asmanex) 1 puff BID INH Last administered on 04/01/17 08: 27; Admin Dose 1 PUFF; Start 03/26/17 at 09:00 Oxycodone/ Acetaminophen (Endocet (10/ 325)) 2 tab Q6 PRN PO PAIN Last administered on 04/01/17 13:11; Admin Dose 2 TAB; Start 03/26/17 at 08:00 Diphenhydramine HCl (Benadryl) 25 mg Q4H PRN IV NAUSEA Last administered on 15:08; Admin Dose 25 MG; Start 03/26/17 at 09:30 Ondansetron HCl (Zofran Inj) 4 mg Q4H PRN IV NAUSEA AND/OR VOMITING Last administered on 04/01/17 15:07; Admin Dose 4 MG; Start 03/26/17 at 10:00 Loperamide HCl (Imodium Cap) 2 mg QID PRN PO DIARRHEA Last administered on 21:58; Admin Dose 2 MG; Start 03/26/17 at 22:00 Morphine Sulfate (morphine) 5 mg Q4H PRN IV PAIN LEVEL 6-10 Last administered on 04/01/17 15:10; Admin Dose 5 MG; Start 03/28/17 at 15:00 Promethazine HCl (Phenergan) 25 mg Q6H PRN PO nausea Last administered on 08:08; Admin Dose 25 MG; Start 03/30/17 at 01:30 ARIEL POE Apr 01, 2017 18:02
[2017-04-01] MEDS: morphine 2 MG INJ IV PRN (18:54)
[2017-04-01 20:14] VITALS: BP 134/84; RESP 20
[2017-04-02] MEDS: morphine 2 MG INJ IV PRN ×2 (01:10→09:30)
[2017-04-02] MEDS: DEXTROSE 5%-0.45% NACL 1,000 ML IV SCH (01:14)
[2017-04-02] MEDS: ONDANSETRON 4 MG INJ IV PRN ×2 (05:24→09:30)
[2017-04-02] MEDS: PANTOPRAZOLE (EC) 40 MG TAB PO SCH (05:25)
[2017-04-02] MEDS: DIPHENHYDRAMINE 50 MG INJ IV PRN ×2 (05:25→09:30)
[2017-04-02 07:59] VITALS: BP 139/68; RESP 18
[2017-04-02] MEDS: LEVOTHYROXINE 88 MCG TAB PO SCH (09:31)
[2017-04-02] MEDS: GABAPENTIN 300 MG CAP PO SCH ×2 (09:31→12:00)
[2017-04-02] MEDS: MOMETASONE 0.24 GM INHALER INH SCH (09:31)
[2017-04-02] MEDS: FLUOXETINE 20 MG CAP PO SCH (09:31)
[2017-04-02] MEDS: OXYCODONE/ACETAMINOPHEN (10/325) TAB PO PRN (11:38)
--- NOTE | 2017-04-05 13:50 | DS ---
DATE OF ADMISSION: 03/25/2017 DATE OF DISCHARGE: 04/02/2017 FINAL DIAGNOSES: 1. Left lower quadrant abdominal pain. 2. Uterine fibroids. 3. Left ovarian cyst. 4. Asthma by history. 5. Anxiety and bipolar disorder. 6. Hypothyroidism. 7. Status post colonoscopy. BRIEF HISTORY: The patient is a 37-year-old female patient, stated that she has a history of irrita ble bowel syndrome, uterine fibroids, asthma, hypothyroidism, fibromyalgia, anxiety. The patient wi th history of distal esophagitis and gastritis per esophagogastroduodenoscopy in February 2016. The nancy ent presented to the emergency room with complaint of left lower quadrant pain, fever and diarrhea f or the last couple of days. The patient stated that she was seen at [facility] a vaginal ultrasound which revealed uterine fibroids and complex cystic lesions of the left ovary . Patient also had a history of diverticulitis and patient was started on antibiotics and given IV fluids and Dilaudid for pain and admitted for further evaluation and management. HOSPITAL COURSE: The patient was evaluated by laborist top distribution executive. A pelvic ultrasound was ordered wh ich revealed uterine fibroids and 2 left ovarian cysts measuring 2 cm, status post right oophorectom y. No adnexal mass or free fluids noted. The patient was also evaluated by Dr. Barnes in gastroent erology consultation and underwent colonoscopy. The patient has a mild degree of diverticulosis. T he colon appeared normal and minimal external hemorrhoids were noted. Biopsies were done to rule ou t microscopic colitis. Biopsy came back with a colonic mucosa showing no significant histopathologi vanita abnormality. The patient complains of nausea, was given Zofran. The patient gradually started on clear liquid diet and advanced to regular diet and was able to tolerate it well without any nause a. The patient was discharged home. CONDITION ON DISCHARGE: Hemodynamically stable. ACTIVITY: As patient tolerates. DIET: Regular diet. DISCHARGE MEDICATIONS: 1. Patient is given prescription for Zofran p.r.n. for nausea. 2. Patient is given renewed prescription for [place] and omeprazole. The patient is to continue on her home medications of: 1. Prozac. 2. Beclomethasone. 3. Gabapentin. 4. Levothyroxine. 5. Ativan p.r.n. for anxiety. The patient instructed to follow up with primary care physician in 2 weeks and plan of care was jose roberto blished for this patient. Plan of care was discussed with Dr. Messina. Dictated By: ARIEL POE SAMPLER OVENS for CRISTOFER MESSINA MD SR/NTS Conf#: [id number] DID#: [id number]
== END 2017-04-02 12:30 | disposition home or self-care (01) | DRG 378 ==
LOC: FTE 04:23 → PP2 05:05
PROVIDERS: ADMIT Internal Medicine; ATTEND Internal Medicine
PROC: 0DBF8ZX Excision of Right Large Intestine, Via Natural or Artificial Opening Endoscopic, Diagnostic (ICD-10-PCS; 2017-03-28)
PROC: 0DBG8ZX Excision of Left Large Intestine, Via Natural or Artificial Opening Endoscopic, Diagnostic (ICD-10-PCS; principal; 2017-03-28 12:00)
DX: K57.31 Diverticulosis of large intestine without perforation or abscess with bleeding (principal); Z68.42 Body mass index [BMI] 45.0-49.9, adult; E03.9 Hypothyroidism, unspecified; K57.92 Diverticulitis of intestine, part unspecified, without perforation or abscess without bleeding; F41.9 Anxiety disorder, unspecified; F31.9 Bipolar disorder, unspecified; N83.202 Unspecified ovarian cyst, left side; J45.909 Unspecified asthma, uncomplicated; Z90.721 Acquired absence of ovaries, unilateral; Z90.49 Acquired absence of other specified parts of digestive tract; K92.1 Melena; Z80.0 Family history of malignant neoplasm of digestive organs; E66.9 Obesity, unspecified; D25.9 Leiomyoma of uterus, unspecified; K64.4 Residual hemorrhoidal skin tags
CPT/HCPCS: 36415; 76830; 76856; 80048; 80053; 81003; 83690; 84132; 85025; 85610; 85730; 87075; 88305; 96374; 96375; 96376; J1170; J1200; J2250; J2270; J2405; J2543; J3010; J7030; J7042

== ENCOUNTER 2018-05-05 06:04 | Emergency (ER) | END 2018-05-05 07:51 | disposition home or self-care (01) ==